=== PATIENT | male | born 1935 | race Caucasian/White ===

== ENCOUNTER 2016-12-06 13:15 | Inpatient (IN) ==
[2016-12-06] MEDS ORDERED: methylPREDNISolone 125 MG/2 ML VIAL IVP ONE ×2 (13:19→13:20)
[2016-12-06] MEDS ORDERED: Ipratropium/Albuterol Neb 3 ML IH ONE (13:20)
[2016-12-06] MEDS ORDERED: Levofloxacin 750 MG/150 ML 750 MG/150 ML BAG IVPB ONE (13:21)
[2016-12-06 13:40] LABS: Basophils % 0.3 %; Eosinophils # 0.1 K/mcL (0.0-0.6); Eosinophils % 0.8 %; Hematocrit 35.2 % (37.5-50.1); Hemoglobin 11.3 g/dL (12.9-16.9); Immature Granulocytes % 0.1 % (0-4); Lymphocytes # 1.2 K/mcL (0.6-4.6); Lymphocytes % 15.9 %; Mean Corpuscular HGB Conc 32.1 g/dL (31.6-35.5); Mean Corpuscular Hemoglobin 31.4 pg (28.0-33.3); Mean Corpuscular Volume 97.8 fL (83.0-100.0); Mean Platelet Volume 9.5 fL (9.4-12.4); Monocytes # 0.4 K/mcL (0.0-1.3); Monocytes % 5.5 %; Neutrophils # 5.9 K/mcL (1.6-8.9); Platelet Count 278 K/mcL (140-400); Red Cell Distribution Width 11.8 % (11.5-14.5); Segmented Neutrophils % 77.4 %
[2016-12-06 13:46] LABS: Prothrombin Time 11.1 Seconds (9.4-12.1)
[2016-12-06 13:48] LABS: Activated Partial Thrombo Time 36.5 Seconds (26.0-36.0)
[2016-12-06 13:52] LABS: BUN/Creatinine Ratio 18 (6-26); Blood Urea Nitrogen 18 mg/dL (8-26); Calcium 10.6 mg/dL (8.6-10.8); Carbon Dioxide 37 mEq/L (19-29); Chloride 94 mEq/L (98-109); Glucose 92 mg/dL (70-99); Osmolality,Calculated 294 (280-300); Potassium 4.2 mEq/L (3.5-4.5); Sodium 141 mEq/L (136-145); eGFR For African Americans > 60 (> 60); eGFR For Non-African Americans > 60 (> 60)
--- NOTE | 2016-12-06 14:21 | Emergency Department Note ---
Disposition Clinical Impression: Acute exacerbation of chronic obstructive airways disease Chronic respiratory failure Qualifiers: Respiratory failure complication: hypoxia Qualified Code(s): J96.11 - Chronic respiratory failure with hypoxia Dyspnea Qualifiers: Dyspnea type: dyspnea on exertion Qualified Code(s): R06.09 - Other forms of dyspnea Disposition: Admitted As Inpatient Condition: Good Time of Disposition: 14:40 SOB HPI - General Chief Complaint: ED Shortness of Breath/Dyspnea Stated Complaint: LIDIA x3days Time Seen by Provider: 12/06/16 13:19 Source: patient, EMS Mode of arrival: EMS Limitations: no limitations Nursing Notes Reviewed: Yes Vital Signs Reviewed: Yes - History of Present Illness Patient presents by EMS for evaluation shortness of breath and productive cough at home. He has long-standing COPD and emphysema. He typically uses 4 L oxygen at home. He is felt the symptoms coming on for approximately 3 days. He denies chest pain headache vision changes nausea vomiting diarrhea. Denies fevers or chills. Pt Subjective Complaint: shortness of breath, cough Onset (ago): day(s) (3 days) Context: recent illness, smoke/fume exposure Severity: moderate Consistency/Duration: constant Improves with: oxygen, rest, bronchodilators, upright position Worsens with: lying flat, exertion, movement, coughing Known history of: COPD Associated symptoms: Reports: cough, sputum production Treatment prior to arrival: oxygen, bronchodilator Cough present: Yes Cough Description: Involuntary Cough Frequency: Intermittent Sputum production: Yes Sputum Amount: Moderate Sputum Color: White - Related Data Home oxygen amount: 4 liters Home Medications Medication Instructions Recorded Confirmed Albuterol Neb [Proventil Neb] 2.5 mg IH PRN PRN 06/16/15 09/02/15 Albuterol Sulfate [Albuterol 2 puff IH PRN PRN 06/16/15 09/02/15 Inhaler] Chlordiazepoxide [Librium] 5 mg PO BID 06/16/15 09/02/15 Cholecalciferol (Vitamin D3) 10,000 unit PO QAM 09/02/15 09/02/15 [Vitamin D3] Previous Rx's Medication Instructions Recorded Nicotine Patch [Nicoderm] 21 mg TD DAILY #30 patch.td24 08/28/15 Budesonide/Formoterol 160/4.5 2 puff IH BIDR #5 inhaler 10/23/15 [Symbicort] Morphine Oral CONC [Roxanol] 5 mg SL Q2H PRN #2 oral.syg 09/06/15 Nicotine Patch [Nicoderm] 21 mg TD DAILY #20 patch.td24 09/06/15 Sennosides [Senna] 17.2 mg PO BID #30 tablet 09/06/15 Amlodipine [Norvasc] 10 mg PO DAILY #30 tablet 08/11/16 Levofloxacin 500 mg PO DAILY #3 tablet 08/11/16 Omeprazole [PriLOSEC] 20 mg PO DAILY@0630 #30 capsule. 08/11/16 PredniSONE 60 mg PO DAILY 9 Days 08/11/16 Allergies Allergy/AdvReac Type Severity Reaction Status Date / Time No Known Allergies Allergy Verified 08/27/15 11:44 All systems ED: reviewed and negative except as stated. Constitutional: Denies: fever, chills Cardiovascular: Reports: dyspnea on exertion, orthopnea. Denies: chest pain, palpitations Respiratory: Denies: cough Gastrointestinal: Denies: abdominal pain, nausea Genitourinary: Denies: dysuria, frequency Musculoskeletal: Denies: back pain, neck pain, joint swelling Integumentary: Denies: rash, abrasion, lesions Neurological: Denies: headache Endocrine: Denies: fatigue Past Medical History - Past Medical History Attestation: Yes The following information was validated with the patient. Source: patient Medical history: Reports: COPD, hypertension, other Surgical history: Reports: no surgical history Psychiatric history: Reports: no psych history - Social History Smoking Status: Current every day smoker Smokeless Tobacco Status: No Alcohol use: Reports: none Drug use: Reports: none Physical Exam - General Limitations: no limitations General appearance: alert, in no apparent distress - Head Head exam: atraumatic, normocephalic, normal inspection - Neck Neck exam: Present: normal inspection, full ROM, trachea midline. Absent: tenderness - Chest Chest inspection: Present: normal inspection, symmetric chest wall rise. Absent : tenderness - Respiratory Respiratory exam: Present: respiratory distress, wheezes, accessory muscle use, prolonged expiratory phase - Cardiovascular Cardiovascular exam: Present: regular rate, normal rhythm, normal heart sounds - Extremities Exam Extremities exam: Present: normal inspection, full ROM, normal capillary refill. Absent: tenderness, pedal edema - Back Exam Back exam: Present: normal inspection, full ROM. Absent: tenderness - Neurological Exam Neurological exam: Present: alert, oriented X3, CN II-XII intact, normal gait - Psychiatric Psychiatric exam: Present: normal affect, normal mood - Skin Skin exam: Present: warm, dry, intact, normal color Course Course Narrative: Patient seen and examined the time of arrival by EMS. See history of present illness. This is an 81-year-old male who presents with known COPD and emphysema. He has had exacerbation of his symptoms over the last 3 days. He typically is on 4 L of oxygen at home he has productive white sputum. He is currently smoking. He denies chest pain fevers chills nausea vomiting and diarrhea. Denies any changes in medication or travel outside the country. He says that this is identical to his previous COPD exacerbations. Physical exam shows diffuse bilateral wheezing with intermittent crackles. Patient is visibly tachypnea with increased work of breathing he is thin and frail on presentation. He is well-known to the emergency room and I have seen him myself several times. She will have COPD treatment started at this time the steroids and breathing treatments. He does not require BiPAP at this point he is speaking in full sentences on the ED and answering questions appropriately. Labs EKG and chest x-ray ordered at this time. Prophylactic dose of IV Levaquin ordered considering his sputum production and presentation. Disposition will most likely be admission to the hospital once her workup is completed. EKG and chest x-ray pending - Reevaluation(s) Reevaluation #1: Patient was discussed with the hospitalist Dr. carvajal. Detailed review the patient's presentation symptoms and medical history were reviewed. He had no other recommendations at this time. Patient will be admitted to the hospital for what appears to be a COPD exacerbation with failed outpatient treatment. Time: 14:39 Vital Signs Temperature 98.5 F 12/06/16 13:16 Pulse Rate 95 12/06/16 13:16 Respiratory Rate 22 12/06/16 13:16 Blood Pressure 166/87 12/06/16 13:16 O2 Sat by Pulse Oximetry 91 L 12/06/16 13:16 Temperature 98.5 F 12/06/16 13:16 Pulse Rate 98 12/06/16 14:07 Respiratory Rate 18 12/06/16 14:35 Blood Pressure 144/87 12/06/16 14:35 O2 Sat by Pulse Oximetry 97 12/06/16 14:07 Oxygen Delivery Oxygen Delivery Nasal Cannula Shortness of Breath/Dyspnea - MDM Narrative Medical decision making narrative: COPD exacerbation, hypoxia, tachypnea - Medical Records Medical records reviewed: Yes I reviewed the patient's medical records. - Lab Data Lab results reviewed: Yes I reviewed the patient's lab results. Result diagrams: 12/06/16 13:30 12/06/16 13:30 Lab Results 12/06/16 12/06/16 12/06/16 Range/Units 13:30 13:30 13:30 WBC 7.6 (4.3-11.1) K/mcL RBC 3.60 L (4.19-5.50) M/mcL Hgb 11.3 L (12.9-16.9) g/dL Hct 35.2 L (37.5-50.1) % MCV 97.8 (83.0-100.0) fL MCH 31.4 (28.0-33.3) pg MCHC 32.1 (31.6-35.5) g/dL RDW 11.8 (11.5-14.5) % Plt Count 278 (140-400) K/mcL MPV 9.5 (9.4-12.4) fL Immature Gran % 0.1 (0-4) % Seg Neutrophils % 77.4 % Lymphocytes % 15.9 % Monocytes % 5.5 % Eosinophils % 0.8 % Basophils % 0.3 % Neutrophils # 5.9 (1.6-8.9) K/mcL Lymphocytes # 1.2 (0.6-4.6) K/mcL Monocytes # 0.4 (0.0-1.3) K/mcL Eosinophils # 0.1 (0.0-0.6) K/mcL Basophils # 0.0 (0.0-0.2) K/mcL PT 11.1 (9.4-12.1) Seconds INR 1.0 APTT 36.5 H (26.0-36.0) Seconds Sodium 141 (136-145) mEq/L Potassium 4.2 (3.5-4.5) mEq/L Chloride 94 L (98-109) mEq/L Carbon Dioxide 37 H (19-29) mEq/L BUN 18 (8-26) mg/dL Creatinine 1.02 (0.72-1.25) mg/dL Est GFR ( Amer) > 60 (> 60) Est GFR (Non-Af Amer) > 60 (> 60) BUN/Creatinine Ratio 18 (6-26) Glucose 92 (70-99) mg/dL Calculated Osmolality 294 (280-300) Calcium 10.6 (8.6-10.8) mg/dL Troponin I (0-0.03) ng/mL B-Natriuretic Peptide (0-100) pg/mL 12/06/16 12/06/16 Range/Units 13:30 13:30 WBC (4.3-11.1) K/mcL RBC (4.19-5.50) M/mcL Hgb (12.9-16.9) g/dL Hct (37.5-50.1) % MCV (83.0-100.0) fL MCH (28.0-33.3) pg MCHC (31.6-35.5) g/dL RDW (11.5-14.5) % Plt Count (140-400) K/mcL MPV (9.4-12.4) fL Immature Gran % (0-4) % Seg Neutrophils % % Lymphocytes % % Monocytes % % Eosinophils % % Basophils % % Neutrophils # (1.6-8.9) K/mcL Lymphocytes # (0.6-4.6) K/mcL Monocytes # (0.0-1.3) K/mcL Eosinophils # (0.0-0.6) K/mcL Basophils # (0.0-0.2) K/mcL PT (9.4-12.1) Seconds INR APTT (26.0-36.0) Seconds Sodium (136-145) mEq/L Potassium (3.5-4.5) mEq/L Chloride (98-109) mEq/L Carbon Dioxide (19-29) mEq/L BUN (8-26) mg/dL Creatinine (0.72-1.25) mg/dL Est GFR ( Amer) (> 60) Est GFR (Non-Af Amer) (> 60) BUN/Creatinine Ratio (6-26) Glucose (70-99) mg/dL Calculated Osmolality (280-300) Calcium (8.6-10.8) mg/dL Troponin I 0.02 (0-0.03) ng/mL B-Natriuretic Peptide 100 (0-100) pg/mL - Radiology Data Radiology results reviewed: Yes I reviewed the patient's radiology results. Chest x-ray shows hyperinflation but no signs of infiltrate. Reviewed by myself and confirmed by radiology - EKG Data EKG attestation: Yes I reviewed and interpreted this EKG. EKG shows normal: Reports: sinus rhythm, axis, intervals, QRS complexes, ST-T waves Rate: Reports: normal Rhythm: Reports: NSR [place]/QRS: Reports: normal When compared to previous EKG there are: no significant changes Interpretation: Reports: no acute changes, unchanged when compared to prior tracing (date) Critical Care Time Critical Care Time: Yes Total Critical Care Time: 45 Attestation: Independent of procedures and medical intervention Attestation Statement - Attestation Attestation: Patient was seen with resident physician. I reviewed the history, physical, assessment and plan, and agree with the findings. I also personally evaluated this patient and had [id number] time with this patient. 81-year-old male with chronic COPD presents to the emergency department with acute worsening in shortness of breath. Concerned that he might have pneumonia or another problem. He is on home O2 but this is not helping, nor are his breathing treatments. Denies chest pain or other complaints. On examination heart is regular rhythm and rate. Lungs show diffuse wheezing throughout with increased work of breathing and barrel chest. Abdomen is soft and nontender he said mild abdominal wall herniations which are easily reducible. Extremities are unremarkable. Patient was given 3 breathing treatments but unfortunately did not resolve him of symptoms sufficiently to go home. X-ray showed no acute pneumonia. We will bring into the emergency department for respiratory therapy option therapy and further evaluation and management. Hospitalist notified hemodynamically stable at the time of admission. I agree with the resident physician assessment and plan.
[2016-12-06] MEDS ORDERED: Acetaminophen 325 MG TABLET PO PRN (15:08)
[2016-12-06] MEDS ORDERED: Naloxone 0.4 MG/ML INJ IVP PRN (15:08)
[2016-12-06] MEDS ORDERED: Ondansetron 4 MG/2 ML VIAL IVP PRN (15:08)
--- NOTE | 2016-12-06 15:14 | Internal Med History&Physical ---
Date of Encounter: 12/06/16 Time of Encounter: 14:35 Internal Medicine - H&P: HPI Chief complaint: Coughing, SOB X 2-3 days Admitted From: Emergency Dept Plans for Post Hospital Care: Home History of present illness: Mr. Becker is a 81 year old male male with medical history significant for advanced COPD, oxygen -dependent on home oxygen 4L/min, was brought in by EMS for evaluation of progressive SOB over the past 2-3 days and a productive cough. SOB occurring at rest that he is barely able to move. Cough is productive of clear mucous no associated chest pain. No fever, chills or rigors. He reports swelling in her left sub-mandibular area, he had discussedwith his PCP,WHOM HE REPORTS DID NOT arlene a particular action on it. No sick contacts, no recent travel. He did not receive influenza vaccination for the season. He reports he is up-to-date with pneumococcal vaccination. He has 4- 5 exacerbations yearly. He reports compliance with medications. He continues to smoke about 25 cigarettes daily. He has no plans to quit smoking. No othr systemic symptoms, no constiutional signs. Patient presents by EMS for evaluation shortness of breath and productive cough at home. He has long- standing COPD and emphysema. He typically uses 4 L oxygen at home. He is felt the symptoms coming on for approximately 3 days. He is FULL CODE as per discussion. However he does not want to be maintained, under any circumstance in a prolonged vegetative state. He nominates his , Josephine Becker, as his NOK/POA. Source: patient and daughter Medical history: Reports: COPD, hypertension, other Surgical history: Reports: no surgical history Psychiatric history: Reports: no psych history Smoking Status: Current every day smoker Smokeless Tobacco Status: No Alcohol use: Reports: none Drug use: Reports: none Family history: mother/father: cancer, uncertain of primary, brother: DM2 Vital Signs Temperature 98.5 F 12/06/16 13:16 Pulse Rate 95 12/06/16 13:16 Respiratory Rate 22 12/06/16 13:16 Blood Pressure 166/87 12/06/16 13:16 O2 Sat by Pulse Oximetry 91 L 12/06/16 13:16 Temperature 98.5 F 12/06/16 13:16 Pulse Rate 98 12/06/16 14:07 Respiratory Rate 18 12/06/16 14:35 Blood Pressure 144/87 12/06/16 14:35 O2 Sat by Pulse Oximetry 97 12/06/16 14:07 O/E: In distress, tachypneic, unable to speak in complete sentences, no pursing of lips. Emaciated, low skin fold thickness, with scanty subcutaneous fat. HEENT: Not pale, anicteric, afebrile, acyanotic, Chest: expiratory wheezing, prolonged expiratory phase. Heart: RRR, HS1/2, no murmur Abdomen: soft, non-tender, no masses. : No flank tenderness, no CVA tenderness, no suprapubic tenderness. SUPERVISOR FACEPIECE LINE: AAO x 3, no gross focal neurological deficits Skin: No active skin lesion Extremities: No pedal edema, normal pedal pulses, no calf tenderness. Lab Results 12/06/16 12/06/16 12/06/16 Range/Units 13:30 13:30 13:30 WBC 7.6 (4.3-11.1) K/mcL RBC 3.60 L (4.19-5.50) M/mcL Hgb 11.3 L (12.9-16.9) g/dL Hct 35.2 L (37.5-50.1) % MCV 97.8 (83.0-100.0) fL MCH 31.4 (28.0-33.3) pg MCHC 32.1 (31.6-35.5) g/dL RDW 11.8 (11.5-14.5) % Plt Count 278 (140-400) K/mcL MPV 9.5 (9.4-12.4) fL Immature Gran % 0.1 (0-4) % Seg Neutrophils % 77.4 % Lymphocytes % 15.9 % Monocytes % 5.5 % Eosinophils % 0.8 % Basophils % 0.3 % Neutrophils # 5.9 (1.6-8.9) K/mcL Lymphocytes # 1.2 (0.6-4.6) K/mcL Monocytes # 0.4 (0.0-1.3) K/mcL Eosinophils # 0.1 (0.0-0.6) K/mcL Basophils # 0.0 (0.0-0.2) K/mcL PT 11.1 (9.4-12.1) Seconds INR 1.0 APTT 36.5 H (26.0-36.0) Seconds Sodium 141 (136-145) mEq/L Potassium 4.2 (3.5-4.5) mEq/L Chloride 94 L (98-109) mEq/L Carbon Dioxide 37 H (19-29) mEq/L BUN 18 (8-26) mg/dL Creatinine 1.02 (0.72-1.25) mg/dL Est GFR ( Amer) > 60 (> 60) Est GFR (Non-Af Amer) > 60 (> 60) BUN/Creatinine Ratio 18 (6-26) Glucose 92 (70-99) mg/dL Calculated Osmolality 294 (280-300) Calcium 10.6 (8.6-10.8) mg/dL Troponin I (0-0.03) ng/mL B-Natriuretic Peptide (0-100) pg/mL 12/06/16 12/06/16 Range/Units 13:30 13:30 WBC (4.3-11.1) K/mcL RBC (4.19-5.50) M/mcL Hgb (12.9-16.9) g/dL Hct (37.5-50.1) % MCV (83.0-100.0) fL MCH (28.0-33.3) pg MCHC (31.6-35.5) g/dL RDW (11.5-14.5) % Plt Count (140-400) K/mcL MPV (9.4-12.4) fL Immature Gran % (0-4) % Seg Neutrophils % % Lymphocytes % % Monocytes % % Eosinophils % % Basophils % % Neutrophils # (1.6-8.9) K/mcL Lymphocytes # (0.6-4.6) K/mcL Monocytes # (0.0-1.3) K/mcL Eosinophils # (0.0-0.6) K/mcL Basophils # (0.0-0.2) K/mcL PT (9.4-12.1) Seconds INR APTT (26.0-36.0) Seconds Sodium (136-145) mEq/L Potassium (3.5-4.5) mEq/L Chloride (98-109) mEq/L Carbon Dioxide (19-29) mEq/L BUN (8-26) mg/dL Creatinine (0.72-1.25) mg/dL Est GFR ( Amer) (> 60) Est GFR (Non-Af Amer) (> 60) BUN/Creatinine Ratio (6-26) Glucose (70-99) mg/dL Calculated Osmolality (280-300) Calcium (8.6-10.8) mg/dL Troponin I 0.02 (0-0.03) ng/mL B-Natriuretic Peptide 100 (0-100) pg/mL CXR: hyperinflated lungs, no infiltrates EKG: NSR, LAE, LAFB, IVDC low voltage due to hyperinflated lungs, no acute changes, unchanged when compared to prior tracing IMP Acute bronchitis Acute on chronic respiratory failure, evident use tachypnea and use of accessory muscle of respiration COPD exacerbation Dysuria, evaluate for UTI Left submandibular focal adenopathy: lymph node vs submandibular gland. Chronic morbidities Advanced COPD Muscle wasting, malnutrition related to advance COPD. HTN History of colitis History of prostate cancer s/pprsotatic seeding. Plan Admit Oxygen supplementation Duonebs QIDR, albuterol nebs Q2H PRN Solumedrol 40mg Q12H Symbicort 2puffs BID Levaquin 500mg po QD Symptom control Famotidine 40mg po QD CT chest adn soft tissue of neck with IV contrast. Lovenox 40mg SC QD for DVT prophylaxis Continue other medications of chronic morbidities. I discussed my assessment with the patient, family was at bedside, they verbalized understanding and are agreeable to admission. The patient is high risk. He has increased work of breath, may easily deteriorate to require pressure support. I Past Med Surg Social Fam HX - Past Medical History Medical history: COPD, hypertension, other Psychiatric history: no psych history - Past Surgical History Surgical History: no surgical history - Social History Smoking Status: Current every day smoker Smokeless Tobacco Status: No Alcohol use: none Drug use: none - Family History Brother Living Status: Still Living Hx Family Endocrine Disorder: Yes (Diabetes) Internal Medicine - H&P: Meds Albuterol Neb [Proventil Neb] 2.5 mg IH PRN PRN 06/16/15 [History] Albuterol Sulfate [Albuterol Inhaler] 2 puff IH PRN PRN 06/16/15 [History] Chlordiazepoxide [Librium] 10 mg PO BID 06/16/15 [History] Cholecalciferol (Vitamin D3) [Vitamin D3] 10,000 unit PO QAM 09/02/15 [History] Budesonide/Formoterol 160/4.5 [Symbicort] 2 puff IH BIDR #5 inhaler 09/06/15 [Rx ] Ascorbate Calcium [Vitamin C] 500 mg PO DAILY 12/06/16 [History] Cranberry 500 mg PO DAILY 12/06/16 [History] Diphenoxylate/Atropine [Lomotil 2.5 mg/0.025 mg] 1 tab PO BID 12/06/16 [History] Multivitamin [Multi-Day Vitamins] 1 tab PO DAILY 12/06/16 [History] Allergies No Known Allergies Allergy (Verified 08/27/15 11:44) All Systems PM: A 10-system review of systems was performed and is negative for pertinent findings except as documented above in the HPI. - Constitutional Vitals: Temp Pulse Resp BP Pulse Ox 98.5 F 98 18 144/87 97 12/06/16 13:16 12/06/16 14:07 12/06/16 14:35 12/06/16 14:35 12/06/16 14:07 Internal Med - H&P Results - Labs CBC & Chem 7: 12/06/16 13:30 12/06/16 13:30
[2016-12-06] MEDS: Ipratropium/Albuterol Neb 3 ML IH SCH ×2 (16:34→22:13)
[2016-12-06] MEDS: MethylPREDNISolone 40 MG/ML VIAL IVP SCH (17:51)
[2016-12-06 19:30] LABS: Bilirubin,Urine Negative (Negative); Blood,Urine Negative (Negative); Clarity,Urine Clear (Clear); Color,Urine Yellow (Yellow); Glucose,Urine (UA) Normal (Normal); Ketones,Urine Negative (Negative); Leukocyte Esterase,Urine Negative (Negative); Nitrite,Urine Negative (Negative); PH,Urine 7.5 pH Units (5.0-8.0); Protein,Urine Trace mg/dL (Neg-Trace); Specific Gravity,Urine 1.023 (1.010-1.025); Urobilinogen,Urine Normal (Normal)
[2016-12-06 19:32] LABS: Bacteria,Urine None Seen per hpf (None-Few); Hyaline Casts,Urine None Seen per lpf (None-Few); RBC,Urine 0-3 per hpf (0-3); Squamous Epithelial Cell,Urine Moderate per lpf (None-Few)
[2016-12-06] MEDS: Albuterol 2.5 MG/3 ML NEBULIZER IH PRN (19:53)
[2016-12-06] MEDS: Diphenoxylate/Atropine 1 TAB TABLET PO SCH (21:17)
[2016-12-06] MEDS: Budesonide/Formoterol 160/4.5 MDI IH SCH (22:13)
[2016-12-07] MEDS: Nicotine 21 MG PATCH.TD24 TD SCH (02:15)
[2016-12-07] MEDS: Ipratropium/Albuterol Neb 3 ML IH SCH ×5 (04:58→23:49)
[2016-12-07] MEDS: MethylPREDNISolone 40 MG/ML VIAL IVP SCH ×3 (06:07→23:27)
[2016-12-07] MEDS: *HR* Enoxaparin 40 MG/0.4 ML SYRINGE SQ SCH (06:07)
[2016-12-07] MEDS: levoFLOXacin 500 MG TABLET PO SCH (08:55)
[2016-12-07] MEDS: Multivit/Ca/Min/Fe/FA 1 TAB TABLET PO SCH (08:55)
[2016-12-07] MEDS: Ascorbic Acid 500 MG TABLET PO SCH (08:55)
[2016-12-07] MEDS: Cholecalciferol (D-3) 1,000 UNIT TABLET PO SCH (08:56)
[2016-12-07] MEDS: Diphenoxylate/Atropine 1 TAB TABLET PO SCH (08:56)
[2016-12-07] MEDS: Cranberry [Cranberry] 500 MG PO SCH (08:56)
[2016-12-07] MEDS ORDERED: Famotidine 20 MG TABLET PO SCH (09:00)
[2016-12-07] MEDS ORDERED: Nicotine 21 MG PATCH.TD24 TD SCH (09:00)
[2016-12-07] MEDS: Budesonide/Formoterol 160/4.5 MDI IH SCH ×2 (10:45→20:25)
--- NOTE | 2016-12-07 12:47 | Internal Med Progress Note ---
Date of Encounter: 12/07/16 Time of Encounter: 09:30 - Assessment and plan (1) Acute exacerbation of chronic obstructive airways disease Current Visit: Yes Status: Acute Assessment and plan: Patient stating he feels slightly better but is not back to his baseline. On examination, aeration fair to poor. Continue pulmonary toilet. Chest x-ray consistent with hyperinflation, chest CT consistent with severe COPD and possibly interstitial pneumonitis, we will continue to trend. Continue levofloxacin. Neck CT unremarkable. ITS Impressions Chest X-Ray 12/06/16 13:19 IMPRESSION: Hyperinflation. D/ / Tasia Lovell MD / Tasia Lovell MD Interpreting Provider: Tasia Lovell MD Chest CT 12/06/16 15:58 IMPRESSION: 1. No acute process in the chest. 2. Mildly enlarged nonspecific distal anterior peritracheal lymph node mildly increased from 09/04/2015. 3. Severe COPD. 4. Possible early honeycombing and interstitial markings at the bilateral lung bases raising the possibility of usual interstitial pneumonitis. 5. Calcified pleural plaque at the left lung base. The differential includes remote empyema versus hemothorax versus asbestos related pleural disease. 6. Small volume of anterior pericardial fluid. D/ / Rolando Abraham MD / Rolando Abraham MD Interpreting Provider: Rolando Abraham MD Soft Tissue Neck CT 12/06/16 15:58 IMPRESSION: 1. There is no evidence of a left submandibular mass to correspond with the area of palpable clinical concern. No appreciable soft tissue swelling is noted along the left side of the face. 2. No cervical lymphadenopathy. 3. Severe emphysema. D/ / 12/06/2016 17:24:30 Thien Londono MD / car[place] Interpreting Provider: Thien Londono MD (2) Acute and chronic respiratory failure with hypoxia Current Visit: No Status: Acute Assessment and plan: Acute on chronic. Patient is on 4 L per nasal cannula continuously at home, currently on 4 L here as well. (3) Generalized weakness Current Visit: Yes Status: Acute Assessment and plan: OT and PT consultations are pending. Patient stating he does not feel as if he could ambulate to the bathroom at this time, will order bedside commode. (4) DVT prophylaxis Current Visit: No Status: Acute Assessment and plan: Subcutaneous Lovenox (5) Dysuria Current Visit: No Status: Ruled-out Assessment and plan: Urinalysis negative. UTI ruled out. (6) Full code status Current Visit: No Status: Acute (7) History of pancreatic cancer Current Visit: No Status: Chronic (8) Hypertension Current Visit: No Status: Chronic Assessment and plan: Controlled, will continue to trend and adjust medications as indicated. Qualifiers: Hypertension type: essential hypertension Qualified Code(s): I10 - Essential (primary) hypertension (9) Tobacco abuse Current Visit: No Status: Chronic Assessment and plan: Declines smoking cessation counseling, nicotine patch (10) Anemia Current Visit: Yes Status: Chronic Assessment and plan: Stable since 2014, no signs of active bleeding. Mild. - Subjective Interval history: Patient seen and examined. On examination, patient resting supine in bed conversing with his and watching television. Patient stating he still feels quite a bit more short of breath than usual and he continues to endorse weakness. He is concerned that if he has to go to the bathroom, he feels he is too weak to ambulate at this time. - Constitutional Vitals: Temp Pulse Resp BP Pulse Ox 98 F 104 16 117/66 88 L 12/07/16 11:29 12/07/16 11:29 12/07/16 11:29 12/07/16 11:29 12/07/16 11:29 General appearance: Present: cachectic, mild distress, A&O X 3, pleasant, answers questions appropriately - Head Head exam: Present: atraumatic, normocephalic - Eye Eye exam: Present: PERRL, conjuntiva pink, sclera anicteric Pupils: Present: PERRL - Neck Neck exam general surgery: Present: supple, trachea midline. Absent: lymphadenopathy - Respiratory Respiratory exam: Present: accessory muscle use, decreased breath sounds, prolonged expiratory phase, respiratory distress, wheezes. Absent: rales, rhonchi - Cardiovascular Cardiovascular exam: Present: RRR, +S1, +S2. Absent: diastolic murmur, gallop, rubs, systolic murmur - GI/Abdominal GI/Abdominal exam: Present: normal bowel sounds, soft, no peritoneal signs. Absent: distended, tenderness - Extremities Exam Extremities exam: Present: warm, radial pulses palpable and symetrical. Absent : calf tenderness, cyanotic, pedal edema - Neurological Exam Neurological exam: Present: alert, CN II-XII intact, oriented X3, no focal deficits, strengths equal and symetr throughout. Absent: pronater drift, facial droop, speech deficit - Skin Skin exam: Present: dry, intact, pallor, warm Internal Medicine: Result - Labs CBC & Chem 7: 12/06/16 13:30 12/06/16 13:30 Labs: Urine 12/06/16 Range/Units 19:18 Urine Color Yellow (Yellow) Urine Clarity Clear (Clear) Urine pH 7.5 (5.0-8.0) pH Units Ur Specific [place] 1.023 (1.010-1.025) Urine Protein Trace (Neg-Trace) mg/dL Urine Glucose (UA) Normal (Normal) mg/dL - ABG Interpretation ABG results: PT/INR, D-dimer PT 11.1 Seconds (9.4-12.1) 12/06/16 13:30 Consult Discharge Plan - Plan Referrals: Radha Hicks CNP [Primary Care Provider] - 12/14/16 9:45 am
[2016-12-07] MEDS ORDERED: Diphenoxylate/Atropine 1 TAB TABLET PO PRN (12:53)
--- NOTE | 2016-12-07 17:34 | Electrocardiograph Report ---
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
[2016-12-07] MEDS: Albuterol 2.5 MG/3 ML NEBULIZER IH PRN (21:37)
[2016-12-07] MEDS ORDERED: Benzonatate 100 MG CAPSULE PO PRN (21:44)
[2016-12-08] MEDS: Ipratropium/Albuterol Neb 3 ML IH SCH ×3 (04:31→11:21)
[2016-12-08] MEDS: *HR* Enoxaparin 40 MG/0.4 ML SYRINGE SQ SCH (06:03)
[2016-12-08] MEDS: Budesonide/Formoterol 160/4.5 MDI IH SCH (08:19)
[2016-12-08] MEDS ORDERED: Famotidine 20 MG TABLET PO SCH (09:00)
[2016-12-08] MEDS: levoFLOXacin 500 MG TABLET PO SCH (09:46)
[2016-12-08] MEDS: MethylPREDNISolone 40 MG/ML VIAL IVP SCH (09:46)
[2016-12-08] MEDS: Cholecalciferol (D-3) 1,000 UNIT TABLET PO SCH (09:46)
[2016-12-08] MEDS: Ascorbic Acid 500 MG TABLET PO SCH (09:47)
[2016-12-08] MEDS: Nicotine 21 MG PATCH.TD24 TD SCH (09:47)
[2016-12-08] MEDS: Multivit/Ca/Min/Fe/FA 1 TAB TABLET PO SCH (09:47)
[2016-12-08 10:44] VITALS: BP 142/80
[2016-12-08] MEDS: Cranberry [Cranberry] 500 MG PO SCH (13:40)
--- NOTE | 2016-12-08 14:20 | Discharge Summary ---
Date of Encounter: 12/08/16 Time of Encounter: 13:30 - Discharge Diagnosis (1) Acute exacerbation of chronic obstructive airways disease Priority: Primary Status: Resolved Comments: Patient denies shortness of breath above his normal day of discharge. He continued to require the same amount of oxygen at home which is 4 L per nasal cannula continuously. He declined home health services. Prescription written for walker and bedside commode. (2) Acute and chronic respiratory failure with hypoxia Priority: Primary Status: Acute (3) Generalized weakness Priority: Primary Status: Acute Comments: Patient declined home health services stating that he would rather go home and then decide at a later time if he felt home health services would be beneficial. (4) DVT prophylaxis Priority: Primary Status: Acute Comments: Subcutaneous Lovenox while admitted. (5) Dysuria Priority: Primary Status: Ruled-out Comments: Urinalysis negative, UTI ruled out. (6) Full code status Priority: Primary Status: Acute (7) History of pancreatic cancer Priority: Secondary Status: Chronic (8) Hypertension Priority: Secondary Status: Chronic Comments: Controlled, recommend continued follow-up outpatient. Qualifiers: Hypertension type: essential hypertension Qualified Code(s): I10 - Essential (primary) hypertension (9) Tobacco abuse Priority: Secondary Status: Chronic Comments: Declines smoking cessation counseling. (10) Anemia Priority: Secondary Status: Chronic Comments: Stable since 2015, no signs of active bleeding. Mild. Qualifiers: Anemia type: unspecified type Qualified Code(s): D64.9 - Anemia, unspecified (11) Protein-calorie malnutrition, moderate Priority: Primary Status: Acute Comments: Moderate non severe protein calorie malnutrition, poor po intakes prior to arrival with visible loss of fat stores and BMI 18.5. Sending home with Ensure drinks. - Discharge Medications Prescriptions: Benzonatate [Tessalon] 200 mg PO TID PRN #40 capsule PRN Reason: Cough Commode - Three In One [THREE IN ONE COMMODE] 1 each .ROUTE PRN #1 each Famotidine [Pepcid] 20 mg PO DAILY #30 tablet GuaiFENesin ER [Mucinex] 600 mg PO BID PRN #30 tbbp.12hr PRN Reason: Congestion Lactose-Reduced Food [Ensure Plus] 1 bottle PO TID #90 can Levofloxacin [Levaquin] 500 mg PO DAILY #5 tablet PredniSONE 10 mg PO DAILY #80 tablet Tiotropium [place] [Spiriva Respimat] 4 gm IH DAILY #1 mist.inhal Walker - Rollator [ROLLATOR] 1 each .ROUTE AD #1 each Home Medications: Albuterol Neb [Proventil Neb] 2.5 mg IH PRN PRN 06/16/15 [History] Albuterol Sulfate [Albuterol Inhaler] 2 puff IH PRN PRN 06/16/15 [History] Chlordiazepoxide [Librium] 10 mg PO BID 06/16/15 [History] Cholecalciferol (Vitamin D3) [Vitamin D3] 10,000 unit PO QAM 09/02/15 [History] Budesonide/Formoterol 160/4.5 [Symbicort] 2 puff IH BIDR #5 inhaler 09/06/15 [Rx ] Ascorbate Calcium [Vitamin C] 500 mg PO DAILY 12/06/16 [History] Cranberry 500 mg PO DAILY 12/06/16 [History] Diphenoxylate/Atropine [Lomotil 2.5 mg/0.025 mg] 1 tab PO BID 12/06/16 [History] Multivitamin [Multi-Day Vitamins] 1 tab PO DAILY 12/06/16 [History] Benzonatate [Tessalon] 200 mg PO TID PRN #40 capsule 12/08/16 [Rx] Commode - Three In One [THREE IN ONE COMMODE] 1 each .ROUTE PRN #1 each [Rx] Famotidine [Pepcid] 20 mg PO DAILY #30 tablet 12/08/16 [Rx] GuaiFENesin ER [Mucinex] 600 mg PO BID PRN #30 tbbp.12hr 12/08/16 [Rx] Lactose-Reduced Food [Ensure Plus] 1 bottle PO TID #90 can 12/08/16 [Rx] Levofloxacin [Levaquin] 500 mg PO DAILY #5 tablet 12/08/16 [Rx] PredniSONE 10 mg PO DAILY #80 tablet 12/08/16 [Rx] Tiotropium [place] [Spiriva Respimat] 4 gm IH DAILY #1 mist.inhal 12/08/16 [Rx] Walker - Rollator [ROLLATOR] 1 each .ROUTE AD #1 each 12/08/16 [Rx] Allergies/Adverse Reactions: Allergies No Known Allergies Allergy (Verified 08/27/15 11:44) Date of admission: 12/06/16 16:24 Primary care physician: Radha Hicks CNP Consults: 12/06/16 15:12 Consult to Occupational Therapy [CONS] Routine Comment: Evaluate, develop and implement POC Consult to Physical Therapy [CONS] Routine Comment: Evaluate, develop and implement POC Consult to Drywall Carrier [CONS] Routine Reason for SW Consult: COPD, discharge planning Discharging clinician: Jennifer Cornell Anticipated date of discharge: 12/08/16 (declined services) - Patient Status Disposition: Home, Self-Care Condition: Good Functional capacity at discharge: uses cane/walker Overall status at discharge: patient is back to baseline - Discharge Instructions Follow Up With: Radha Hicks CNP [Primary Care Provider] - 12/14/16 9:45 am Additional Instructions: Follow-up with primary care provider as scheduled - Diet and Activity Activity: ambulate only with your walker, increase activity as tolerated Diet: regular diet (with ensure supplements) Hospital course: Mr. Becker is a 81 year old male with past medical history of COPD on 4 L per nasal cannula continuously at home, hypertension, continued tobacco abuse. Patient presented to the emergency room chief complaint shortness of breath and productive cough 3 days. Workup in the emergency department unremarkable. Chest x-ray unremarkable for acute processes. Chest CT without acute processes and revealed severe COPD and possible early honeycombing. Patient was admitted to the hospitalist service for further evaluation and management of COPD exacerbation. Patient was admitted and observed over the course of 3 days and on day of discharge, he denied shortness of breath above his norm. He continued to require 4 L per nasal cannula continuously throughout this admission. He had generalized weakness and was seen and evaluated by occupational and physical therapy both of whom recommended home health services. Patient family declined home services at this time stating they would rather go home and then set up home health in the future if need be. Patient also reported swelling to his left submandibular area that he discussed with his primary care provider in the past. Soft tissue neck CT unremarkable for acute processes. Patient stating he continues to smoke approximately 25 cigarettes per day and states he has no plans to quit smoking. For further COPD treatment, Spiriva was added to his regimen upon disposition. He was also sent home with a lengthy prednisone taper, Mucinex, levofloxacin. He was also noted to be cachectic and was started on Ensure plus supplementations. He was also sent home with prescriptions for a bedside commode and a walker to use at home. He was discharged home in stable condition with close outpatient follow- up recommended. ITS Impressions Chest X-Ray 12/06/16 13:19 IMPRESSION: Hyperinflation. D/ / Tasia Lovell MD / Tasia Lovell MD Interpreting Provider: Tasia Lovell MD Chest CT 12/06/16 15:58 IMPRESSION: 1. No acute process in the chest. 2. Mildly enlarged nonspecific distal anterior peritracheal lymph node mildly increased from 09/04/2015. 3. Severe COPD. 4. Possible early honeycombing and interstitial markings at the bilateral lung bases raising the possibility of usual interstitial pneumonitis. 5. Calcified pleural plaque at the left lung base. The differential includes remote empyema versus hemothorax versus asbestos related pleural disease. 6. Small volume of anterior pericardial fluid. D/ / Rolando Abraham MD / Rolando Abraham MD Interpreting Provider: Rolando Abraham MD Soft Tissue Neck CT 12/06/16 15:58 IMPRESSION: 1. There is no evidence of a left submandibular mass to correspond with the area of palpable clinical concern. No appreciable soft tissue swelling is noted along the left side of the face. 2. No cervical lymphadenopathy. 3. Severe emphysema. D/ / 12/06/2016 17:24:30 Thien Londono MD / [facility] Interpreting Provider: Thien Londono MD - Time Spent with Patient Total time spent providing and/or coordinating discharge services: - Constitutional Vitals: Temp Pulse Resp BP Pulse Ox 98.3 F 99 14 142/80 94 L 12/08/16 10:43 12/08/16 10:43 12/08/16 11:22 12/08/16 10:43 12/08/16 11:22 General appearance: Present: cachectic, mild distress, A&O X 3, pleasant, answers questions appropriately - Head Head exam: Present: atraumatic, normocephalic - Eye Eye exam: Present: PERRL, conjuntiva pink, sclera anicteric Pupils: Present: PERRL - Neck Neck exam general surgery: Present: supple, trachea midline. Absent: lymphadenopathy - Respiratory Respiratory exam: Present: decreased breath sounds, prolonged expiratory phase, respiratory distress (mild; chronic), wheezes. Absent: accessory muscle use, rales, rhonchi - Cardiovascular Cardiovascular exam: Present: RRR, +S1, +S2. Absent: diastolic murmur, gallop, rubs, systolic murmur - GI/Abdominal GI/Abdominal exam: Present: normal bowel sounds, soft, no peritoneal signs. Absent: distended, tenderness - Extremities Exam Extremities exam: Present: warm, radial pulses palpable and symetrical. Absent : calf tenderness, cyanotic, pedal edema - Neurological Exam Neurological exam: Present: alert, CN II-XII intact, oriented X3, no focal deficits, strengths equal and symetr throughout. Absent: pronater drift, facial droop, speech deficit - Skin Skin exam: Present: dry, intact, normal color, warm
== END 2016-12-08 16:18 | disposition home or self-care (01) | DRG 190 ==
LOC: 3BNU 13:15 → EMEROO 13:15 → 3BNU 15:08
PROVIDERS: ADMIT Nurse Practitioner Family; ATTEND Nurse Practitioner Family

== ENCOUNTER 2016-12-26 12:56 | Inpatient (IN) ==
[2016-12-26] MEDS ORDERED: Ipratropium/Albuterol Neb 3 ML IH ONE (12:58)
--- NOTE | 2016-12-26 13:07 | Emergency Department Note ---
Disposition Clinical Impression: Acute exacerbation of chronic obstructive pulmonary disease Disposition: Admitted As Inpatient Condition: Good SOB HPI - General Chief Complaint: ED Shortness of Breath/Dyspnea Stated Complaint: lidia Time Seen by Provider: 12/26/16 12:58 Source: patient, EMS Limitations: age Nursing Notes Reviewed: Yes Vital Signs Reviewed: Yes - History of Present Illness Mr. Becker, an 81yo male, presents from home by POV with bedside, CC: LIDIA. Onset late this morning. Hx COPD w/emphysema, on baseline 4L O2 continuous at home. On EMS arrival, patient was on 5L O2 with O2 sat 86% after a self-administered albuterol neb. En route, squad placed him on 4L with O2 sats in mid 90's. PMH: HTN, COPD, chronic malnutrition, hx prostate ca. Admits: LIDIA. Denies: fever, chills, cough of new character, chest pains, diaphoresis, abdominal pain, unusual weakness. - Related Data Home Medications Medication Instructions Recorded Confirmed Albuterol Neb [Proventil Neb] 2.5 mg IH PRN PRN 06/16/15 12/26/16 Albuterol Sulfate [Albuterol 2 puff IH PRN PRN 06/16/15 12/26/16 Inhaler] Chlordiazepoxide [Librium] 10 mg PO BID 06/16/15 12/26/16 Ascorbate Calcium [Vitamin C] 500 mg PO DAILY 12/06/16 12/26/16 Cranberry 500 mg PO DAILY 12/06/16 12/26/16 Diphenoxylate/Atropine [Lomotil 1 tab PO BID 12/06/16 12/26/16 2.5 mg/0.025 mg] Multivitamin [Multi-Day Vitamins] 1 tab PO DAILY 12/06/16 12/26/16 Budesonide/Formoterol 160/4.5 2 puff IH BID 12/26/16 12/26/16 [Symbicort] Cyanocobalamin (Vitamin B-12) 1,000 mcg PO DAILY 12/26/16 12/26/16 [Vitamin B12] Previous Rx's Medication Instructions Recorded GuaiFENesin ER [Mucinex] 600 mg PO BID PRN #30 tbbp.12hr 12/08/16 Lactose-Reduced Food [Ensure Plus] 1 bottle PO TID #90 can 12/08/16 PredniSONE 10 mg PO DAILY #80 tablet 12/08/16 Allergies Allergy/AdvReac Type Severity Reaction Status Date / Time No Known Allergies Allergy Verified 12/26/16 16:34 All systems ED: reviewed and negative except as stated. (as per HPI) Past Medical History - Past Medical History Medical history: Reports: COPD, hypertension, other Surgical history: Reports: no surgical history Psychiatric history: Reports: no psych history - Social History Smoking Status: Current every day smoker Smokeless Tobacco Status: No Alcohol use: Reports: none Drug use: Reports: none Physical Exam General: Patient is alert, oriented, and in no acute distress. He appears emanciated. HEENT: No facial asymmetry. Head is normocephalic and atraumatic. PERRLA. Trachea midline. Cardiovascular: Heart regular rate and rhythm without clicks, rubs, gallops, or murmurs. No JVD. PMI nondisplaced. No pedal edema. Respiratory: Symmetric chest rise with poor respiratory effort. Prolonged expiratory phase. Bilateral breath sounds have diifuse wheeze with bilateral bibasilar expiratory sounds. Abdomen: Scaphoid. Bowel sounds present normoactive x-4 quadrants. Abdomen is soft, nondistended, and nontender. No organomegaly noted. Psych: Patient's affect is appropriate for situation. - General Limitations: age General appearance: alert Course Course Narrative: Patient has hx of LIDIA requiring admission. Recently has been here the last few Sundays. Will EKG, CXR, basic labs. Elliso jayashree x3 and re-evaluate. Patient's presentation is concerning for acute exacerbation of COPD plus or minus underlying infection. Her well to his triple therapy of DuoNeb's. Even so, his O2d saturation is in the mid 90s on 5 L (baseline 4 L at home). He is diffusely wheezy with coarse crackles in the left lower lung base. Concern is for healthcare associated pneumonia. We will recommend admission for acute on chronic respiratory failure in the setting of healthcare associated pneumonia. Shared decision- making with the patient and his family, we agreed to admit the patient continued IV antibiotics and respiratory therapy. We will page the hospitalist. 15:[address] Faria, hospitalist on admitting duty. He agrees with my assessment and recommends a repeat chest CT to evaluate possibility of acute pneumonia versus chronic lung findings. We will hold off on antibiotics until CT is resulted. He agrees to accept the patient for admission. Vital Signs Temperature 99 F 12/26/16 12:57 Pulse Rate 106 12/26/16 12:57 Respiratory Rate 20 12/26/16 12:57 Blood Pressure 185/93 12/26/16 12:57 O2 Sat by Pulse Oximetry 92 L 12/26/16 12:57 Temperature 99 F 12/26/16 12:57 Pulse Rate 92 12/26/16 16:58 Respiratory Rate 18 12/26/16 17:38 Blood Pressure 155/106 12/26/16 17:38 O2 Sat by Pulse Oximetry 97 12/26/16 16:58 Oxygen Delivery Oxygen Delivery Room Air Shortness of Breath/Dyspnea - MDM Narrative Medical decision making narrative: I examined this patient and my medical decision-making was reviewed with the BRICK MAKER/PA/Advanced Practice Nurse/Resident Physician. I agree with the documented findings, disposition and treatment plan as described except to the extent set forth below. Patient was evaluated with Dr. Jacobsen myself, I agree with his evaluation and management plan, supravascular patient's stay. Patient has a long history of COPD continues to smoke his says premature every week he has an exacerbation he suspend 4 L of oxygen at home. Wheezing and coughing here conversationally dyspneic 2-3 words. Doing breathing treatments chest x-ray and a workup on him and then we will reassess. He is in agreement with this plan. Chest X-Ray 12/26/16 12:58 IMPRESSION: Increase in left basilar opacity which may be related to edema, atelectasis, or infection. D/ / Tasia Lovell MD / Tasia Lovell MD Interpreting Provider: Tasia Lovell MD 1440 hrs.: Patient still having some wheezing. Still has an oxygen requirement has an 18,000 white count which is new. Chest x-ray shows some old changes nothing is new and equal primary need to bring him into the hospital for further evaluation and assessment. Since his admission was less than a month ago we may need to treat this as a hospital-acquired infection which we will speak with hospitalist about that also. 1520 hrs.: Spoke with hospitalist, and he agrees no antibiotics at this time repeat the CT of the chest to see if this is pneumonia or what other pathology could be there we talked the CT about that. Patient's agreement with staying in the hospital. Impressions acute exacerbation of COPD, leukocytosis which could be infection or steroids. And hypoxia. Chest X-Ray 12/26/16 12:58 IMPRESSION: Increase in left basilar opacity which may be related to edema, atelectasis, or infection. D/ / Tasia Lovell MD / Tasia Lovell MD Interpreting Provider: Tasia Lovell MD Chest CT 12/26/16 15:20 IMPRESSION: 1. Mucous plugging and consolidative opacities in the left lower lobe and lingula and possibly to a very mild degree of the right lung base compatible with an infectious or inflammatory process. 2. Severe COPD. 3. Mildly enlarged paratracheal lymph node unchanged from 12/06/2016. 4. Small unchanged pericardial effusion. D/ / Rolando Abraham MD / Rolando Abraham MD Interpreting Provider: Rolando Abraham MD - Lab Data Result diagrams: 12/26/16 13:40 12/26/16 13:40 Lab Results 12/26/16 12/26/16 Range/Units 13:40 13:40 WBC 18.0 H (4.3-11.1) K/mcL RBC 3.44 L (4.19-5.50) M/mcL Hgb 10.8 L (12.9-16.9) g/dL Hct 33.9 L (37.5-50.1) % MCV 98.5 (83.0-100.0) fL MCH 31.4 (28.0-33.3) pg MCHC 31.9 (31.6-35.5) g/dL RDW 12.6 (11.5-14.5) % Plt Count 196 (140-400) K/mcL MPV 10.4 (9.4-12.4) fL Immature Gran % 0.4 (0-4) % Seg Neutrophils % 94.3 % Lymphocytes % 1.3 % Monocytes % 3.9 % Eosinophils % 0.0 % Basophils % 0.1 % Neutrophils # 17.0 H (1.6-8.9) K/mcL Lymphocytes # 0.2 L (0.6-4.6) K/mcL Monocytes # 0.7 (0.0-1.3) K/mcL Eosinophils # 0.0 (0.0-0.6) K/mcL Basophils # 0.0 (0.0-0.2) K/mcL Sodium 138 (136-145) mEq/L Potassium 4.0 (3.5-4.5) mEq/L Chloride 96 L (98-109) mEq/L Carbon Dioxide 34 H (19-29) mEq/L BUN 19 (8-26) mg/dL Creatinine 0.83 (0.72-1.25) mg/dL Est GFR ( Amer) > 60 (> 60) Est GFR (Non-Af Amer) > 60 (> 60) BUN/Creatinine Ratio 23 (6-26) Glucose 138 H (70-99) mg/dL Calculated Osmolality 290 (280-300) Calcium 9.8 (8.6-10.8) mg/dL - EKG Data EKG attestation: Yes I reviewed and interpreted this EKG. EKG results narrative: EKG dated 12/26/16 with a sinus tachycardia with rate 100. Normal intervals. Extreme left axis. Left anterior fascicular block. Patient is chest pain-free during this EKG. Compared to previous dated 12/06/2016 shows no acute ischemic changes in comparison.
[2016-12-26 13:55] LABS: Basophils % 0.1 %; Hematocrit 33.9 % (37.5-50.1); Hemoglobin 10.8 g/dL (12.9-16.9); Immature Granulocytes % 0.4 % (0-4); Lymphocytes # 0.2 K/mcL (0.6-4.6); Lymphocytes % 1.3 %; Mean Corpuscular HGB Conc 31.9 g/dL (31.6-35.5); Mean Corpuscular Hemoglobin 31.4 pg (28.0-33.3); Mean Corpuscular Volume 98.5 fL (83.0-100.0); Mean Platelet Volume 10.4 fL (9.4-12.4); Monocytes # 0.7 K/mcL (0.0-1.3); Monocytes % 3.9 %; Platelet Count 196 K/mcL (140-400); Red Blood Count 3.44 M/mcL (4.19-5.50); Red Cell Distribution Width 12.6 % (11.5-14.5); Segmented Neutrophils % 94.3 %
[2016-12-26 14:13] LABS: BUN/Creatinine Ratio 23 (6-26); Blood Urea Nitrogen 19 mg/dL (8-26); Calcium 9.8 mg/dL (8.6-10.8); Carbon Dioxide 34 mEq/L (19-29); Chloride 96 mEq/L (98-109); Glucose 138 mg/dL (70-99); Osmolality,Calculated 290 (280-300); Sodium 138 mEq/L (136-145); eGFR For African Americans > 60 (> 60); eGFR For Non-African Americans > 60 (> 60)
[2016-12-26] MEDS ORDERED: methylPREDNISolone 125 MG/2 ML VIAL IV ONE (14:40)
[2016-12-26] MEDS ORDERED: Acetaminophen 325 MG TABLET PO PRN (19:19)
[2016-12-26] MEDS ORDERED: Naloxone 0.4 MG/ML INJ IVP PRN (19:19)
[2016-12-26] MEDS ORDERED: Ondansetron 4 MG/2 ML VIAL IVP PRN (19:19)
[2016-12-26] MEDS ORDERED: Albuterol 2.5 MG/3 ML NEBULIZER IH PRN (19:25)
--- NOTE | 2016-12-26 19:36 | Internal Med History&Physical ---
<Libertad Damian - Last Filed: 12/27/16 00:32> Date of Encounter: 12/27/16 Time of Encounter: 18:30 Assessment and Plan (1) Acute and chronic respiratory failure with hypoxia Current visit: No Status: Acute 1 patient presented hypoxic SPO2 88-90 despite being on oxygen. We will continue with oxygen titrated to maintain SPO2 greater than 92% patient may require BiPAP 2 continuous SPO2 monitoring 3 bronchodilators (2) Acute exacerbation of chronic obstructive pulmonary disease Current visit: Yes Status: Acute 1 she is oxygen dependent on 4 L nasal cannula home has been expressing increasing shortness of breath despite the use of bronchodilators and increase in oxygen. We will continue with oxygen support titrated to maintain SPO2 greater 90% patient may require BiPAP support 2 we will continue with bronchodilators 3 Solu-Medrol [address] did reveal some mucus plugging- dictated speak with pulmonary request that patient receive chest percussion per respiratory therapy 5 we will make patient nothing by mouth pulmonary will evaluate in a.m. for possible bronchoscopy (3) Community acquired pneumonia Current visit: Yes Status: Acute 1 patient does have elevation in white count 18 this can be related to chronic steroid use or infectious process. With cough shortness of breath and radiograph suspicious for infectious process will initiate on antibiotics Levaquin and Zosyn, will monitor CBC 2 we will continue with oxygen support, steroids and bronchodilators (4) Protein-calorie malnutrition, moderate Current visit: No Status: Acute 1 patient's severe cachectic- we will consult dietary for nutritional supplements (5) Tobacco abuse Current visit: No Status: Chronic 1 patient continues to smoke half pack a day encouraged patient to stop smoking - nicotine patch (6) DVT prophylaxis Current visit: Yes Status: Acute [facility] Internal Medicine - H&P: HPI Chief complaint: SOB Admitted From: Emergency Dept Plans for Post Hospital Care: Home History of present illness: Mr. Becker is a 81 year old male with past history of hypertension COPD oxygen dependent chronic malnutrition history of prostate cancer tobacco abuse.. According to patient he has been experiencing increasing shortness of breath of breath on exertion over the past 2 days. He is also independent home on 4 L nasal cannula even with oxygen and he continues to be short of breath. He is used his breathing treatments with little relief at times experiencing chest tightness during exertion. According to ER notes patient did call EMS and upon arrival patient was on 4 L of O2 sats were only 86% he was getting himself albuterol treatments. EMS placed patient on 5 L his oxygen saturation increased the mid 90s and was transported to the ER for further evaluation. Patient was given DuoNeb is supple arrival in the ER he continued to have wheezy coarse crackles and some concern for pneumonia chest x-ray was obtained did reveal left basilar pacer the which may be related to edema and atelectasis or infection. CT chest was obtained which did reveal mucus plugging and consolidative opacities in the left lower lobe compatible with infectious or inflammatory process. Lab work did reveal elevated white count at 18 Patient was given steroids IV steroids patient was admitted for further workup and evaluation. Upon assessment patient does not appear to be in any respiratory distress this time. He does have scattered crackles and rhonchi throughout lung hanna no cough noted at this time. Oxygen saturation is 94-95% on 5 L. Reviewed this case with Dr. mckeon who agrees with plan Past Med Surg Social Fam HX - Past Medical History Medical history: COPD, hypertension, other Psychiatric history: no psych history - Past Surgical History Surgical History: no surgical history - Social History Smoking Status: Current every day smoker Packs per day: 1 Smokeless Tobacco Status: No Alcohol use: none Drug use: none - Family History Brother Living Status: Still Living Hx Family Endocrine Disorder: Yes (Diabetes) Internal Medicine - H&P: Meds Albuterol Neb [Proventil Neb] 2.5 mg IH PRN PRN 06/16/15 [History] Albuterol Sulfate [Albuterol Inhaler] 2 puff IH PRN PRN 06/16/15 [History] Chlordiazepoxide [Librium] 10 mg PO BID 06/16/15 [History] Ascorbate Calcium [Vitamin C] 500 mg PO DAILY 12/06/16 [History] Cranberry 500 mg PO DAILY 12/06/16 [History] Diphenoxylate/Atropine [Lomotil 2.5 mg/0.025 mg] 1 tab PO BID 12/06/16 [History] Multivitamin [Multi-Day Vitamins] 1 tab PO DAILY 12/06/16 [History] GuaiFENesin ER [Mucinex] 600 mg PO BID PRN #30 tbbp.12hr 12/08/16 [Rx] Lactose-Reduced Food [Ensure Plus] 1 bottle PO TID #90 can 12/08/16 [Rx] PredniSONE 10 mg PO DAILY #80 tablet 12/08/16 [Rx] Budesonide/Formoterol 160/4.5 [Symbicort] 2 puff IH BID 12/26/16 [History] Cyanocobalamin (Vitamin B-12) [Vitamin B12] 1,000 mcg PO DAILY 12/26/16 [History ] Allergies No Known Allergies Allergy (Verified 12/26/16 16:34) All Systems PM: A 10-system review of systems was performed and is negative for pertinent findings except as documented above in the HPI. - Constitutional Constitutional: anorexia, fatigue, weight loss - Cardiovascular Cardiovascular ROS IM: dyspnea, dyspnea on exertion, no chest pain, no diaphoresis, no lightheadedness, no palpitations, no syncope - Respiratory Respiratory: cough, dyspnea on exertion, wheezing - Gastrointestinal Gastrointestinal: no abdominal pain, no diarrhea, no hematemesis, no hematochezia, no melena, no nausea, no vomiting - Musculoskeletal Musculoskeletal ROS IM: no numbness, no tingling - Integumentary Integumentary IM: no rash, no unusual bruising - Neurological Neurological ROS: no confusion, no convulsions, no focal weakness, no numbness, no tingling, no tremor(s) - Hematologic/Lymphatic Hematologic/Lymphatic: no easy bruising - Constitutional Vitals: Temp Pulse Resp BP Pulse Ox 98.6 F 102 20 163/83 94 L 12/26/16 18:21 12/26/16 18:21 12/26/16 18:21 12/26/16 18:21 12/26/16 18:21 General appearance: Present: cachectic, A&O X 3, answers questions appropriately - Head Head exam: Present: atraumatic, normocephalic - Eye Eye exam: Present: PERRL, conjuntiva pink, sclera anicteric Pupils: Present: PERRL - Respiratory Respiratory exam: Present: prolonged expiratory phase, rhonchi, wheezes. Absent : accessory muscle use, rales - Cardiovascular Cardiovascular exam: Present: RRR, +S1, +S2. Absent: diastolic murmur, gallop, rubs, systolic murmur - GI/Abdominal GI/Abdominal exam: Present: normal bowel sounds, soft, no peritoneal signs. Absent: distended, tenderness - Extremities Exam Extremities exam: Present: warm, radial pulses palpable and symetrical. Absent : calf tenderness, cyanotic, pedal edema - Neurological Exam Neurological exam: Present: CN II-XII intact, oriented X3, no focal deficits. Absent: pronater drift, facial droop, speech deficit - Skin Skin exam: Present: dry, intact Internal Med - H&P Results - Labs CBC & Chem 7: 12/26/16 13:40 12/26/16 13:40 - EKG Data Rate: tachycardia - EKG Data Prior EKG available for review: no When compared to previous EKG: there is no significant change EKG comments: 12/27/16 00:18 Left atrial enlargement with left anterior pillar block which is present on previous EKG - Diagnostic Studies Chest x-ray Additional comments: Radiology read increase in the basilar opacity which may be related to edema atelectasis or infection. CT scan - chest Additional comments: CT of chest mucus plugging and consolidative V's in the left lower lobe and lingula and possibly to a very mild degree of the right lung base compatible with the an infectious or inflammatory process Severe COPD Mildly enlarged paratracheal lymph nodes unchanged from 12/06/2016 Small unchanged pericardial effusion <Rodrigo Mckeon - Last Filed: 12/27/16 08:19> Date of Encounter: 12/27/16 Internal Medicine - H&P: HPI History of present illness: Mr. Becker is a 81 year old male All Systems PM: A 10-system review of systems was performed and is negative for pertinent findings except as documented above in the HPI. - Constitutional Vitals: Temp Pulse Resp BP Pulse Ox 98.1 F 90 17 139/78 94 L 12/27/16 08:09 12/27/16 08:09 12/27/16 08:09 12/27/16 08:09 12/27/16 08:09 Internal Med - H&P Results - Labs CBC & Chem 7: 12/27/16 04:27 12/27/16 04:27 Labs: Short CBC 12/27/16 Range/Units 04:27 WBC 13.8 H (4.3-11.1) K/mcL Hgb 10.0 L (12.9-16.9) g/dL Hct 30.9 L (37.5-50.1) % Plt Count 191 (140-400) K/mcL Neutrophils # 13.4 H (1.6-8.9) K/mcL BMP 12/27/16 04:27 Sodium 135 L Potassium 4.7 H Chloride 94 L Carbon Dioxide 33 H BUN 22 Creatinine 0.93 Glucose 125 H Calcium 9.4 - Attending Attestation I examined this patient and my medical decision-making was reviewed with the Advanced Practice Provider. I agree with the documented findings, disposition and treatment plan as described except to the extent set forth below. On exam the patient is in no acute distress, speaking in full sentences, he appears frail and malnourished. Lung exam reveals Rales in the left lower lobe and diffuse expiratory wheezes. Plan: For COPD and pneumonia and mucous plugging will treat the patient with Zosyn and Levaquin inhaled bronchodilators, IV steroids. We will consult pulmonary for possible need for bronchoscopy. For severe protein calorie malnutrition we will consult dietary for nutritional supplements.
[2016-12-26] MEDS: Budesonide/Formoterol 160/4.5 MDI IH SCH (19:46)
[2016-12-26] MEDS ORDERED: Levofloxacin 750 MG/150 ML 750 MG/150 ML BAG IVPB SCH (20:00)
[2016-12-26] MEDS ORDERED: Piperacillin/Tazobactam 3.375 GM in D5% in Water (Mini-Bag+) 100 ML IVPB SCH (20:00)
[2016-12-26] MEDS ORDERED: Ipratropium/Albuterol Neb 3 ML IH SCH (20:00)
[2016-12-26] MEDS: Piperacillin/Tazobactam 3.375 GM in D5% in Water (Mini-Bag+) 100 ML IVPB SCH (23:25)
[2016-12-26] MEDS: methylPREDNISolone 125 MG/2 ML VIAL IVP SCH (23:53)
[2016-12-27] MEDS: Ipratropium/Albuterol Neb 3 ML IH SCH ×5 (00:19→22:37)
[2016-12-27 05:03] LABS: Hematocrit 30.9 % (37.5-50.1); Immature Granulocytes % 0.6 % (0-4); Lymphocytes # 0.1 K/mcL (0.6-4.6); Lymphocytes % 0.8 %; Mean Corpuscular HGB Conc 32.4 g/dL (31.6-35.5); Mean Corpuscular Hemoglobin 31.3 pg (28.0-33.3); Mean Corpuscular Volume 96.9 fL (83.0-100.0); Mean Platelet Volume 10.6 fL (9.4-12.4); Monocytes # 0.2 K/mcL (0.0-1.3); Monocytes % 1.2 %; Neutrophils # 13.4 K/mcL (1.6-8.9); Platelet Count 191 K/mcL (140-400); Red Blood Count 3.19 M/mcL (4.19-5.50); Red Cell Distribution Width 12.4 % (11.5-14.5); Segmented Neutrophils % 97.4 %
[2016-12-27 05:16] LABS: BUN/Creatinine Ratio 24 (6-26); Blood Urea Nitrogen 22 mg/dL (8-26); Calcium 9.4 mg/dL (8.6-10.8); Carbon Dioxide 33 mEq/L (19-29); Chloride 94 mEq/L (98-109); Glucose 125 mg/dL (70-99); Osmolality,Calculated 285 (280-300); Potassium 4.7 mEq/L (3.5-4.5); Sodium 135 mEq/L (136-145); eGFR For African Americans > 60 (> 60); eGFR For Non-African Americans > 60 (> 60)
[2016-12-27 05:26] LABS: Platelet Estimate Normal (Normal); Toxic Granulation Present (Not Present)
[2016-12-27] MEDS: Piperacillin/Tazobactam 3.375 GM in D5% in Water (Mini-Bag+) 100 ML IVPB SCH ×3 (05:45→21:12)
[2016-12-27] MEDS: *HR* Enoxaparin 40 MG/0.4 ML SYRINGE SQ SCH (05:47)
[2016-12-27] MEDS: methylPREDNISolone 125 MG/2 ML VIAL IVP SCH ×3 (05:47→17:36)
[2016-12-27] MEDS: Nicotine 14 MG PATCH.TD24 TD SCH (10:08)
[2016-12-27] MEDS: Ascorbic Acid 500 MG TABLET PO SCH (10:10)
[2016-12-27] MEDS: Cyanocobalamin (B-12) 1,000 MCG TABLET PO SCH (10:10)
[2016-12-27] MEDS: Multivit/Ca/Min/Fe/FA 1 TAB TABLET PO SCH (10:10)
[2016-12-27] MEDS: (Cranberry [Cranberry] 500 MG) PO SCH (10:16)
[2016-12-27] MEDS: Budesonide/Formoterol 160/4.5 MDI IH SCH ×2 (11:25→22:36)
[2016-12-27 13:01] LABS: Adenovirus Not Detected (Not Detect); Bordetella Pertussis Not Detected (Not Detect); Chlamydophila pneumoniae Not Detected (Not Detect); Coronavirus 229E Not Detected (Not Detect); Coronavirus HKU1 Not Detected (Not Detect); Coronavirus NL63 Not Detected (Not Detect); Coronavirus OC43 Not Detected (Not Detect); Human Metapneumovirus Not Detected (Not Detect); Human Rhinovirus/Enterovirus Not Detected (Not Detect); Influenza A Subtype 2009 H1 Not Detected (Not Detect); Influenza A Untypeable Not Detected (Not Detect); Influenza B Not Detected (Not Detect); Mycoplasma pneumoniae Not Detected (Not Detect); Parainfluenza Virus 1 Not Detected (Not Detect); Parainfluenza Virus 2 Not Detected (Not Detect); Parainfluenza Virus 3 Not Detected (Not Detect); Parainfluenza Virus 4 Not Detected (Not Detect); Respiratory Syncytial Virus Not Detected (Not Detect)
--- NOTE | 2016-12-27 13:40 | Pulmonology Consult Note ---
Date of Encounter: 12/27/16 Time of Encounter: 13:39 Assessment and Plan (1) Acute and chronic respiratory failure with hypoxia Current Visit: No Status: Acute This is secondary to pneumonia with COPD exacerbation Wean FiO2 to keep saturations greater than 88-92% Encourage spirometry out of bed to chair as tolerated early ambulation (2) Community acquired pneumonia Current Visit: Yes Status: Acute Patient presenting with pneumonia and infectious viral panel negative sputum culture pending blood cultures pending legionella and strep pneumo antigens have been ordered and are pending. He is on coverage for atypical organisms as well as possibility of pseudomonal infection. The evidence of mucous plugging is very mild and no significant collapse associated with it no acute indication for bronchoscopy and chest x-ray that was performed today was without significant change Recommend continued bronchodilators and would add airway clearance device including Acapella which can be facilitated by respiratory therapy (3) Acute exacerbation of chronic obstructive pulmonary disease Current Visit: Yes Status: Acute Continue bronchodilators continue steroids can likely transition to enteral steroids prednisone 40 mg for 2 week taper. Smoking cessation crucial (4) DVT prophylaxis Current Visit: Yes Status: Acute (5) Tobacco abuse Current Visit: No Status: Chronic Waite on the effects of smoking in the lung including if he stops now likely decrease risk of recurrent COPD exacerbations all questions answered recommended taking replacement History of Present Illness Consult date: 12/27/16 Requesting physician: Rodrigo Hassan Reason for consult: pneumonia Chief complaint: Shortness of breath History of present illness: This is an 81-year-old gentleman with a history of COPD long-standing tobacco abuse and coronary day smoker and chronic respiratory failure requiring oxygen who presented with difficulty breathing after 2-3 days' duration also cough that has been productive of phlegm and wheezing. Upon admission to the ED was noted to be saturating in the high 80s low 90s and had an elevated white count and CT was obtained which was suggestive of left pneumonia which is multifocal also a small left pleural effusion. There is also noted some mucus plugging and concern for need for bronchoscopy and pulmonary was consulted. He denies fevers and hemoptysis but has endorsed generalized fatigue and malaise. Patient started smoking as teenagers continues to smoke a half a pack a day at least he has been diagnosed with COPD and uses inhalers he is not sure exactly which ones but uses them daily he has had admissions for COPD exacerbations in the past. 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 He does not keep any pets no sick contacts denies recent travel Past Med Surg Social Fam HX - Past Medical History Medical history: COPD, hypertension, other Psychiatric history: no psych history - Past Surgical History Surgical History: no surgical history - Social History Smoking Status: Current every day smoker Packs per day: 1 Smokeless Tobacco Status: No Alcohol use: none Drug use: none - Family History Brother Living Status: Still Living Hx Family Endocrine Disorder: Yes (Diabetes) Medications and Allergies Albuterol Neb [Proventil Neb] 2.5 mg IH PRN PRN 06/16/15 [History] Albuterol Sulfate [Albuterol Inhaler] 2 puff IH PRN PRN 06/16/15 [History] Chlordiazepoxide [Librium] 10 mg PO BID 06/16/15 [History] Ascorbate Calcium [Vitamin C] 500 mg PO DAILY 12/06/16 [History] Cranberry 500 mg PO DAILY 12/06/16 [History] Diphenoxylate/Atropine [Lomotil 2.5 mg/0.025 mg] 1 tab PO BID 12/06/16 [History] Multivitamin [Multi-Day Vitamins] 1 tab PO DAILY 12/06/16 [History] GuaiFENesin ER [Mucinex] 600 mg PO BID PRN #30 tbbp.12hr 12/08/16 [Rx] Lactose-Reduced Food [Ensure Plus] 1 bottle PO TID #90 can 12/08/16 [Rx] PredniSONE 10 mg PO DAILY #80 tablet 12/08/16 [Rx] Budesonide/Formoterol 160/4.5 [Symbicort] 2 puff IH BID 12/26/16 [History] Cyanocobalamin (Vitamin B-12) [Vitamin B12] 1,000 mcg PO DAILY 12/26/16 [History ] Allergies No Known Allergies Allergy (Verified 12/26/16 16:34) All Systems: A 10-system review of systems was performed and is negative for pertinent findings except as documented above in the HPI. Physical Examination Vital Signs: Vital Signs, Last 4 Hours Temp Pulse Resp BP Pulse Ox 12/27/16 12:04 98.3 F 98 19 133/71 95 12/27/16 11:25 18 94 L General appearance: no acute distress Eyes: nonicteric ENT: oropharynx moist Neck: no lymphadenopathy Effort: normal Auscultation: bilateral: diminished breath sounds, rales, rhonchi Cardiovascular: regular rate and rhythm Gastrointestinal: normoactive bowel sounds Integumentary: normal Extremities: no edema normal mental status, non-focal exam mood appropriate Results - Laboratory Findings CBC and BMP: 12/27/16 04:27 12/27/16 04:27 Abnormal lab findings: Abnormal lab results WBC 13.8 K/mcL (4.3-11.1) H 12/27/16 04:27 RBC 3.19 M/mcL (4.19-5.50) L 12/27/16 04:27 Hgb 10.0 g/dL (12.9-16.9) L 12/27/16 04:27 Hct 30.9 % (37.5-50.1) L 12/27/16 04:27 Neutrophils # 13.4 K/mcL (1.6-8.9) H 12/27/16 04:27 Lymphocytes # 0.1 K/mcL (0.6-4.6) L 12/27/16 04:27 Toxic Granulation Present (Not Present) A 12/27/16 04:27 Sodium 135 mEq/L (136-145) L 12/27/16 04:27 Potassium 4.7 mEq/L (3.5-4.5) H 12/27/16 04:27 Chloride 94 mEq/L (98-109) L 12/27/16 04:27 Carbon Dioxide 33 mEq/L (19-29) H 12/27/16 04:27 Glucose 125 mg/dL (70-99) H 12/27/16 04:27 - Diagnostic Findings Chest x-ray: report reviewed, image reviewed CT scan - chest: report reviewed, image reviewed - Clinical Findings Intake & Output: Intake & Output 12/26/16 12/27/16 12/27/16 23:59 07:59 15:59 Intake Total 480 / 480 250 / 250 100 / 100 Output Total 400 / 1325 575 / 575 250 / 250 Balance 80 / -845 -325 / -325 -150 / -150 Weight 45.314 kg Consult Discharge Plan - Plan Referrals: Radha Hicks, CLINICAL FIELD SPECIALIST [Primary Care Provider] -
--- NOTE | 2016-12-27 14:10 | Electrocardiograph Report ---
[place] [id number] Test Date: 2016-12-26 Pat Name: Alonso Becker Department: 105 Room: 2A32 Gender: M [employer]: : 1935 Requested By: Carlo Osuna Order Number: [id number] Reading MD: Yumiko Fabian Measurements Intervals [place] Rate: 100 P: 94 MT: 129 QRS: -83 QRSD: 96 T: 70 QT: 313 QTc: 370 Interpretive Statements SINUS TACHYCARDIA LEFT ATRIAL ENLARGEMENT [-0.15mV P WAVE IN V1/V2] POSSIBLE RIGHT VENTRICULAR CONDUCTION DELAY [RSR (QR) IN V1/V2] LEFT ANTERIOR FASCICULAR BLOCK [QRS AXIS <= -45, QR IN I, RS IN II] POSSIBLE ANTERIOR MYOCARDIAL INFARCTION [30 ms Q WAVE IN V3/V4, OR R < 0.2 mV IN V4], OF INDETERMINATE AGE Electronically Signed On 12-27-2016 14:08:46 EST by Yumiko Fabian
--- NOTE | 2016-12-27 16:01 | Internal Med Progress Note ---
Date of Encounter: 12/27/16 Time of Encounter: 15:59 - Assessment and plan (1) Acute exacerbation of chronic obstructive pulmonary disease Current Visit: Yes Status: Acute Assessment and plan: he is oxygen dependent on 4 L nasal cannula home , clinically better. We will continue with oxygen support titrated to maintain SPO2 greater 88% we will continue with bronchodilators will continue Solu-Medrol for now, start tapering from tomm. CT did reveal some mucus plugging- pulmonary consulted :::Recommend continued bronchodilators and add airway clearance device including Acapella which can be facilitated by respiratory therapy. (2) Community acquired pneumonia Current Visit: Yes Status: Acute Assessment and plan: will continue levoflox and zosyn, sputum for legionella is negative, will stop levoflox. will continue zosyn.leucocytosis has improved, no fever (3) Tobacco abuse Current Visit: No Status: Chronic - Time Spent With Patient 25 - 35 minutes - Subjective Interval history: seen at the bedside, c/o mild sob and cough with productive sputum. has advanced COPD. admitted for pneumonia with mucus plugging. appreciate pulmonary recommendtaions - Constitutional Vitals: Temp Pulse Resp BP Pulse Ox 98.7 F 106 18 146/69 94 L 12/27/16 15:36 12/27/16 15:36 12/27/16 15:36 12/27/16 15:36 12/27/16 15:36 General appearance: Present: cachectic, A&O X 3, answers questions appropriately Exam: - Head Head exam: Present: atraumatic, normocephalic - Eye Eye exam: Present: PERRL, conjuntiva pink, sclera anicteric Pupils: Present: PERRL - Respiratory Respiratory exam: Present: prolonged expiratory phase, mild rhonchi and wheezing. Absent: accessory muscle use, rales - Cardiovascular Cardiovascular exam: Present: RRR, +S1, +S2. Absent: diastolic murmur, gallop, rubs, systolic murmur - GI/Abdominal GI/Abdominal exam: Present: normal bowel sounds, soft, no peritoneal signs. Absent: distended, tenderness - Extremities Exam Extremities exam: Present: warm, radial pulses palpable and symetrical. Absent : calf tenderness, cyanotic, pedal edema - Neurological Exam Neurological exam: Present: CN II-XII intact, oriented X3, no focal deficits. Absent: pronater drift, facial droop, speech deficit - Skin Skin exam: Present: dry, intact Internal Medicine: Result - Labs CBC & Chem 7: 12/27/16 04:27 12/27/16 04:27 Labs: Short CBC 12/27/16 Range/Units 04:27 WBC 13.8 H (4.3-11.1) K/mcL Hgb 10.0 L (12.9-16.9) g/dL Hct 30.9 L (37.5-50.1) % Plt Count 191 (140-400) K/mcL Neutrophils # 13.4 H (1.6-8.9) K/mcL BMP 12/27/16 04:27 Sodium 135 L Potassium 4.7 H Chloride 94 L Carbon Dioxide 33 H BUN 22 Creatinine 0.93 Glucose 125 H Calcium 9.4 - Impressions Impressions Chest X-Ray 12/27/16 09:00 IMPRESSION: Stable chest x-ray. D/ / Cody Sylvester MD / Cody Sylvester MD Interpreting Provider: Cody Sylvester MD Consult Discharge Plan - Plan Referrals: Radha Hicks, VETERINARY TECHNOLOGIST [Primary Care Provider] -
[2016-12-28] MEDS: methylPREDNISolone 125 MG/2 ML VIAL IVP SCH ×4 (00:39→17:35)
[2016-12-28] MEDS: Ipratropium/Albuterol Neb 3 ML IH SCH ×4 (04:45→22:54)
[2016-12-28] MEDS: Piperacillin/Tazobactam 3.375 GM in D5% in Water (Mini-Bag+) 100 ML IVPB SCH ×3 (05:32→22:44)
[2016-12-28] MEDS: *HR* Enoxaparin 40 MG/0.4 ML SYRINGE SQ SCH (05:32)
[2016-12-28 07:11] LABS: Chloride 96 mEq/L (98-109); Potassium 4.2 mEq/L (3.5-4.5); Sodium 137 mEq/L (136-145)
[2016-12-28 07:19] LABS: Hemoglobin 9.9 g/dL (12.9-16.9); Immature Granulocytes % 0.6 % (0-4); Lymphocytes # 0.2 K/mcL (0.6-4.6); Lymphocytes % 1.9 %; Mean Corpuscular HGB Conc 31.9 g/dL (31.6-35.5); Mean Corpuscular Hemoglobin 30.6 pg (28.0-33.3); Mean Corpuscular Volume 95.7 fL (83.0-100.0); Mean Platelet Volume 10.4 fL (9.4-12.4); Monocytes # 0.3 K/mcL (0.0-1.3); Monocytes % 2.3 %; Neutrophils # 11.5 K/mcL (1.6-8.9); Platelet Count 204 K/mcL (140-400); Red Blood Count 3.24 M/mcL (4.19-5.50); Red Cell Distribution Width 12.5 % (11.5-14.5); Segmented Neutrophils % 95.2 %
[2016-12-28] MEDS: Ascorbic Acid 500 MG TABLET PO SCH (08:04)
[2016-12-28] MEDS: Multivit/Ca/Min/Fe/FA 1 TAB TABLET PO SCH (08:04)
[2016-12-28] MEDS: Nicotine 14 MG PATCH.TD24 TD SCH (08:04)
[2016-12-28] MEDS: (Cranberry [Cranberry] 500 MG) PO SCH (08:05)
[2016-12-28] MEDS: Cyanocobalamin (B-12) 1,000 MCG TABLET PO SCH (08:05)
[2016-12-28 08:16] LABS: BUN/Creatinine Ratio 22 (6-26); Calcium 9.6 mg/dL (8.6-10.8); Carbon Dioxide 34 mEq/L (19-29); Glucose 160 mg/dL (70-99); Osmolality,Calculated 293 (280-300); eGFR For African Americans > 60 (> 60); eGFR For Non-African Americans 54 (> 60)
[2016-12-28 08:19] LABS: Blood Urea Nitrogen 28 mg/dL (8-26)
[2016-12-28] MEDS: Budesonide/Formoterol 160/4.5 MDI IH SCH ×2 (10:48→22:54)
--- NOTE | 2016-12-28 17:40 | Internal Med Progress Note ---
Date of Encounter: 12/28/16 Time of Encounter: 17:38 - Assessment and plan (1) Acute exacerbation of chronic obstructive pulmonary disease Current Visit: Yes Status: Acute Assessment and plan: he is oxygen dependent on 4 L nasal cannula home , clinically better. We will continue with oxygen support titrated to maintain SPO2 greater 88% we will continue with bronchodilators We will start tapering Solu-Medrol today, 60 every [address] did reveal some mucus plugging- pulmonary consulted :::Recommend continued bronchodilators and add airway clearance device including Acapella which can be facilitated by respiratory therapy. No need for bronchoscopy at this time. (2) Community acquired pneumonia Current Visit: Yes Status: Acute Assessment and plan: will continue zosyn, sputum for legionella is negative, will stop levoflox. .leucocytosis has improved, no fever (3) Tobacco abuse Current Visit: No Status: Chronic - Time Spent With Patient 25 - 35 minutes - Subjective Interval history: seen at the bedside, still appears short of breath but says he feels better than yesterday., has advanced COPD admitted for pneumonia with mucus plugging. appreciate pulmonary recommendtaions Patient lives by himself with his and the takes care of him, he does not wish to go to ECF or rehabilitation. Family wants to talk to social director for possible home health, will order PT OT today - Constitutional Vitals: Temp Pulse Resp BP Pulse Ox 97.7 F 96 16 133/79 91 L 12/28/16 11:40 12/28/16 11:40 12/28/16 16:26 12/28/16 11:40 12/28/16 16:26 General appearance: Present: cachectic, A&O X 3, answers questions appropriately Exam: - Head Head exam: Present: atraumatic, normocephalic - Eye Eye exam: Present: PERRL, conjuntiva pink, sclera anicteric Pupils: Present: PERRL - Respiratory Respiratory exam: Present: prolonged expiratory phase, bilateral decreased breath sounds, occasional wheezing. Absent: accessory muscle use, rales - Cardiovascular Cardiovascular exam: Present: RRR, +S1, +S2. Absent: diastolic murmur, gallop, rubs, systolic murmur - GI/Abdominal GI/Abdominal exam: Present: normal bowel sounds, soft, no peritoneal signs. Absent: distended, tenderness - Extremities Exam Extremities exam: Present: warm, radial pulses palpable and symetrical. Absent : calf tenderness, cyanotic, pedal edema - Neurological Exam Neurological exam: Present: CN II-XII intact, oriented X3, no focal deficits. Absent: pronater drift, facial droop, speech deficit - Skin Skin exam: Present: dry, intact Internal Medicine: Result - Labs CBC & Chem 7: 12/28/16 06:42 12/28/16 06:42 Labs: Short CBC 12/28/16 Range/Units 06:42 WBC 12.1 H (4.3-11.1) K/mcL Hgb 9.9 L (12.9-16.9) g/dL Hct 31.0 L (37.5-50.1) % Plt Count 204 (140-400) K/mcL Neutrophils # 11.5 H (1.6-8.9) K/mcL BMP 12/28/16 06:42 Sodium 137 Potassium 4.2 Chloride 96 L Carbon Dioxide 34 H BUN 28 H Creatinine 1.28 H Glucose 160 H Calcium 9.6 Consult Discharge Plan - Plan Referrals: Radha Hicks, ANIYAH [Primary Care Provider] - 01/05/17 1:45 pm (Please follow up as schedule....)
[2016-12-29] MEDS: methylPREDNISolone 125 MG/2 ML VIAL IVP SCH ×2 (03:13→07:51)
[2016-12-29] MEDS: Ipratropium/Albuterol Neb 3 ML IH SCH ×3 (05:07→16:07)
[2016-12-29] MEDS: Piperacillin/Tazobactam 3.375 GM in D5% in Water (Mini-Bag+) 100 ML IVPB SCH (06:45)
[2016-12-29] MEDS ORDERED: *HR* Enoxaparin 30 MG/0.3 ML SYRINGE SQ SCH (07:00)
[2016-12-29] MEDS: Ascorbic Acid 500 MG TABLET PO SCH (08:01)
[2016-12-29] MEDS: Multivit/Ca/Min/Fe/FA 1 TAB TABLET PO SCH (08:01)
[2016-12-29] MEDS: Nicotine 14 MG PATCH.TD24 TD SCH (08:02)
[2016-12-29] MEDS: Cyanocobalamin (B-12) 1,000 MCG TABLET PO SCH (08:02)
[2016-12-29] MEDS ORDERED: 0.9 % Sodium Chloride 1,000 ML IVC ONE (09:55)
--- NOTE | 2016-12-29 10:26 | Discharge Summary ---
Date of Encounter: 12/29/16 Time of Encounter: 10:22 - Discharge Diagnosis (1) Acute exacerbation of chronic obstructive pulmonary disease Priority: Primary Status: Acute (2) Community acquired pneumonia Priority: Secondary Status: Acute Comments: No specific organism identified. (3) Tobacco abuse Priority: Secondary Status: Chronic - Discharge Medications Prescriptions: Amoxicillin/Clavulanate [Augmentin] 875 mg PO BIDWM #20 tablet Doxycycline Hyclate 100 mg PO BID #20 capsule PredniSONE 10 mg PO DAILY 12 Days Home Medications: Albuterol Neb [Proventil Neb] 2.5 mg IH PRN PRN 06/16/15 [History] Albuterol Sulfate [Albuterol Inhaler] 2 puff IH PRN PRN 06/16/15 [History] Chlordiazepoxide [Librium] 10 mg PO BID 06/16/15 [History] Ascorbate Calcium [Vitamin C] 500 mg PO DAILY 12/06/16 [History] Cranberry 500 mg PO DAILY 12/06/16 [History] Diphenoxylate/Atropine [Lomotil 2.5 mg/0.025 mg] 1 tab PO BID 12/06/16 [History] Multivitamin [Multi-Day Vitamins] 1 tab PO DAILY 12/06/16 [History] GuaiFENesin ER [Mucinex] 600 mg PO BID PRN #30 tbbp.12hr 12/08/16 [Rx] Lactose-Reduced Food [Ensure Plus] 1 bottle PO TID #90 can 12/08/16 [Rx] Budesonide/Formoterol 160/4.5 [Symbicort] 2 puff IH BID 12/26/16 [History] Cyanocobalamin (Vitamin B-12) [Vitamin B12] 1,000 mcg PO DAILY 12/26/16 [History ] Amoxicillin/Clavulanate [Augmentin] 875 mg PO BIDWM #20 tablet 12/29/16 [Rx] Doxycycline Hyclate 100 mg PO BID #20 capsule 12/29/16 [Rx] PredniSONE 10 mg PO DAILY 12 Days 12/29/16 [Rx] Allergies/Adverse Reactions: Allergies No Known Allergies Allergy (Verified 12/26/16 16:34) Date of admission: 12/26/16 19:19 Primary care physician: Radha Hicks CNP Consults: 12/26/16 19:30 Consult to Pulmonology [CONS] Routine Consulting Provider: [facility] Reason for Consult: pneumonia mucus plugging- possible bronchoscopy Time Notified: 19:32 Call Completed: Yes 12/27/16 08:20 dietary consult [Consult to Nutrition] [CONS] Routine Comment: Consulting Provider: NUTRITION Reason for Dietary Consult: Supplemental Nutrition 12/27/16 16:18 Consult to Respiratory Therapy [CONS] Routine Reason for Consult: please provide acapella device after breathing treatments. Call Completed: No 12/28/16 15:18 Consult to Occupational Therapy [CONS] Routine Comment: Evaluate, develop and implement POC Consult to Physical Therapy [CONS] Routine Comment: Evaluate, develop and implement POC Discharging clinician: Dorene Ross Anticipated date of discharge: 12/29/16 - Patient Status Disposition: Home Health Service Condition: Good Functional capacity at discharge: uses cane/walker Overall status at discharge: patient is progressing back to baseline - Discharge Instructions Instructions: Chronic Obstructive Pulmonary Disease (DC), Pneumonia (DC) Follow Up With: Radha Hicks CNP [Primary Care Provider] - 01/05/17 1:45 pm (Please follow up as schedule....) Ron Crespo MD [Partnered Physician] - (In 1-2 weeks for COPD) - Diet and Activity Activity: wear oxygen at all times Diet: low fat, low cholesterol, low salt diet Hospital course: Mr. Becker is a 81 year old male who has a history of chronic obstructive pulmonary disease, hypertension, prostate cancer and tobacco abuse was admitted here with acute hypoxic respiratory failure due to acute exacerbation of COPD. He was treated for this with IV steroids, nebulizer treatments and O2 supplementation. CT scan of the chest was obtained which showed some mucus plugging and consolidative opacities in the left lower lobe. Pulmonology was consulted. They recommended supportive care with no urgent need for bronchoscopy. Patient has since improved with O2 supplementation and this treatment regimen. His now feeling much better. He denies any significant shortness of breath at this time. He is eager to go home and will follow up with pulmonology as outpatient. She will be discharged on a steroid taper and short course of antibiotics with Augmentin and doxycycline for acute pneumonia. Patient has slight elevation in his BUN and creatinine today. Likely from related to dehydration. This should improve with IV hydration was the patient will receive prior to discharge. He is not on any nephrotoxic agents. - Time Spent with Patient Total time spent providing and/or coordinating discharge services: Greater than 30 minutes (35 min) - Constitutional Vitals: Temp Pulse Resp BP Pulse Ox 98.1 F 86 18 149/86 94 L 12/29/16 07:41 12/29/16 07:41 12/29/16 07:41 12/29/16 07:41 12/29/16 08:03 General appearance: Present: cachectic, A&O X 3, answers questions appropriately - Respiratory Respiratory exam: Present: decreased breath sounds (bilaterally), prolonged expiratory phase. Absent: accessory muscle use, rales, rhonchi, wheezes - Cardiovascular Cardiovascular exam: Present: RRR, +S1, +S2. Absent: diastolic murmur, gallop, rubs, systolic murmur - GI/Abdominal GI/Abdominal exam: Present: normal bowel sounds, soft, no peritoneal signs. Absent: distended, tenderness - Neurological Exam Neurological exam: Present: alert, oriented X3, no focal deficits. Absent: facial droop, speech deficit - Attending Attestation This document has been at least partially created by [employer] recognition technology by Dr. Ross. Errors in grammar, wording or other phrases may exist. If errors are found after the documentation is signed, they will be addressed individually in the addendum section of this document when appropriate.
--- NOTE | 2016-12-29 10:29 | Physician Discharge Referral ---
Home Health/Hosp Referral Info Transfer to: Home Health Provider in Charge Post Discharge: PCP - Diagnosis (1) Acute exacerbation of chronic obstructive pulmonary disease Priority: Primary Status: Acute (2) Community acquired pneumonia Priority: Secondary Status: Acute (3) Tobacco abuse Priority: Secondary Status: Chronic - Respiratory Orders Oxygen / L per min (4) Smoking Cessation: Smoking cessation has been advised. For more information, call the [place] Tobacco Quit Line at 5-589-ZLEP-NOW. - Diet/Nutrition Diet/Nutrition Orders: No Added Salt (LEONIDES), Cardiac - Activity Activity Orders: Up ad mina, Walker - Services Needed Following services are medically necessary services: Nursing, Physical Therapy, Occupational Therapy - Transfer Medications Prescriptions: Amoxicillin/Clavulanate [Augmentin] 875 mg PO BIDWM #20 tablet Doxycycline Hyclate 100 mg PO BID #20 capsule PredniSONE 10 mg PO DAILY 12 Days Home Medications: Albuterol Neb [Proventil Neb] 2.5 mg IH PRN PRN 06/16/15 [History] Albuterol Sulfate [Albuterol Inhaler] 2 puff IH PRN PRN 06/16/15 [History] Chlordiazepoxide [Librium] 10 mg PO BID 06/16/15 [History] Ascorbate Calcium [Vitamin C] 500 mg PO DAILY 12/06/16 [History] Cranberry 500 mg PO DAILY 12/06/16 [History] Diphenoxylate/Atropine [Lomotil 2.5 mg/0.025 mg] 1 tab PO BID 12/06/16 [History] Multivitamin [Multi-Day Vitamins] 1 tab PO DAILY 12/06/16 [History] GuaiFENesin ER [Mucinex] 600 mg PO BID PRN #30 tbbp.12hr 12/08/16 [Rx] Lactose-Reduced Food [Ensure Plus] 1 bottle PO TID #90 can 12/08/16 [Rx] Budesonide/Formoterol 160/4.5 [Symbicort] 2 puff IH BID 12/26/16 [History] Cyanocobalamin (Vitamin B-12) [Vitamin B12] 1,000 mcg PO DAILY 12/26/16 [History ] Amoxicillin/Clavulanate [Augmentin] 875 mg PO BIDWM #20 tablet 12/29/16 [Rx] Doxycycline Hyclate 100 mg PO BID #20 capsule 12/29/16 [Rx] PredniSONE 10 mg PO DAILY 12 Days 12/29/16 [Rx] Allergies/Adverse Reactions: Allergies No Known Allergies Allergy (Verified 12/26/16 16:34) Certification: Further, I certify that my clinical findings support that this patient is homebound (i.e. absences from home require considerable and taxing effort and are for medical reasons or [facility] or infrequently or short duration when for other reasons) because: Homebound Reason: Patient requires assistance of a person or device to safely leave home, Severity of cardiac or pulmonary status limits activity tolerance Attestation: My signature below is to certify that this patient is under my care and that I, or nurse practitioner, or a physician's office assistant working with me, has a face-to -face encounter with this patient.
[2016-12-29] MEDS: Budesonide/Formoterol 160/4.5 MDI IH SCH (10:49)
[2016-12-29 11:51] VITALS: BP 153/90
== END 2016-12-29 16:33 | disposition home health service (06) | DRG 190 ==
LOC: 2ANU 12:56 → EMEROO 12:56 → 2ANU 17:40 → SUATTDRO 19:19
PROVIDERS: ADMIT Internal Medicine; ATTEND Internal Medicine

== ENCOUNTER 2017-01-04 23:03 | Inpatient (IN) ==
[2017-01-04] MEDS ORDERED: Ipratropium/Albuterol Neb 3 ML IH ONE (23:07)
[2017-01-04] MEDS ORDERED: methylPREDNISolone 125 MG/2 ML VIAL IVP ONE (23:07)
[2017-01-04] MEDS ORDERED: Nitroglycerin 0.4 MG TAB.SUBL SL PRN (23:21)
[2017-01-04] MEDS ORDERED: Aspirin 81 MG TAB.CHEW PO ONE (23:28)
--- NOTE | 2017-01-04 23:32 | Emergency Department Note ---
Disposition Clinical Impression: COPD exacerbation Disposition: Admitted As Inpatient SOB HPI - General Chief Complaint: ED Shortness of Breath/Dyspnea Stated Complaint: jil Time Seen by Provider: 01/04/17 23:07 Source: patient Limitations: no limitations Nursing Notes Reviewed: Yes Vital Signs Reviewed: Yes - History of Present Illness Presents to the ER by EMS for evaluation of shortness of breath. Patient is a 4 L oxygen dependent COPD who was recently in the hospital and diagnosed with pneumonia. Patient shortness of breath today acutely worse over the last 24 hours without relief at home. Patient presents today With diffuse wheezing throughout all lung hanna. Intercostal retractions and increased work of breathing. Oxygen 88% on 4 L. Blood pressure 220 systolic. - Related Data Home Medications Medication Instructions Recorded Confirmed Albuterol Neb [Proventil Neb] 2.5 mg IH PRN PRN 06/16/15 12/26/16 Albuterol Sulfate [Albuterol 2 puff IH PRN PRN 06/16/15 12/26/16 Inhaler] Chlordiazepoxide [Librium] 10 mg PO BID 06/16/15 12/26/16 Ascorbate Calcium [Vitamin C] 500 mg PO DAILY 12/06/16 12/26/16 Cranberry 500 mg PO DAILY 12/06/16 12/26/16 Diphenoxylate/Atropine [Lomotil 1 tab PO BID 12/06/16 12/26/16 2.5 mg/0.025 mg] Multivitamin [Multi-Day Vitamins] 1 tab PO DAILY 12/06/16 12/26/16 Budesonide/Formoterol 160/4.5 2 puff IH BID 12/26/16 12/26/16 [Symbicort] Cyanocobalamin (Vitamin B-12) 1,000 mcg PO DAILY 12/26/16 12/26/16 [Vitamin B12] Previous Rx's Medication Instructions Recorded GuaiFENesin ER [Mucinex] 600 mg PO BID PRN #30 tbbp.12hr 12/08/16 Lactose-Reduced Food [Ensure Plus] 1 bottle PO TID #90 can 12/08/16 Amoxicillin/Clavulanate [Augmentin] 875 mg PO BIDWM #20 tablet 12/29/16 Doxycycline Hyclate 100 mg PO BID #20 capsule 12/29/16 PredniSONE 10 mg PO DAILY 12 Days 12/29/16 Allergies Allergy/AdvReac Type Severity Reaction Status Date / Time No Known Allergies Allergy Verified 12/26/16 16:34 All systems ED: reviewed and negative except as stated. Constitutional: Denies: fever, weakness Cardiovascular: Reports: chest pain Respiratory: Reports: cough, dyspnea Gastrointestinal: Denies: abdominal pain, nausea, vomiting, diarrhea Musculoskeletal: Denies: back pain Neurological: Denies: headache Past Medical History - Past Medical History Medical history: Reports: COPD, hypertension, other Surgical history: Reports: no surgical history Psychiatric history: Reports: no psych history - Social History Smoking Status: Current every day smoker Smokeless Tobacco Status: No Alcohol use: Reports: none Drug use: Reports: none Physical Exam - General Limitations: no limitations General appearance: alert, in no apparent distress - Head Head exam: atraumatic, normocephalic - Eye Eye exam: Present: normal appearance, PERRL - ENT ENT exam: normal exam, normal oropharynx - Neck Neck exam: Present: normal inspection - Chest Chest inspection: Present: normal inspection, other (tachypnea) - Respiratory Respiratory exam: Present: respiratory distress, wheezes (severe bilateral) - Cardiovascular Cardiovascular exam: Present: tachycardia - Abdominal Exam Abdominal exam: Present: soft, Non-Tender - Extremities Exam Extremities exam: Present: normal inspection. Absent: pedal edema - Back Exam Back exam: Present: normal inspection - Neurological Exam Neurological exam: Present: alert - Psychiatric Psychiatric exam: Present: anxious Course - Reevaluation(s) Reevaluation #1: Patient improved after initial treatments. Patient complaining of chest pain across the front of his chest that started this morning. Aspirin given. - Consultations Consultation #1: Discussed with Dr. Ware. Patient accepted Vital Signs Temperature 97.6 F 01/04/17 23:03 Pulse Rate 129 01/04/17 23:03 Respiratory Rate 24 01/04/17 23:03 Blood Pressure 235/124 01/04/17 23:03 O2 Sat by Pulse Oximetry 82 L 01/04/17 23:03 Temperature 97.7 F 01/05/17 02:04 Pulse Rate 97 01/05/17 02:04 Respiratory Rate 27 01/05/17 02:04 Blood Pressure 170/88 01/05/17 02:04 O2 Sat by Pulse Oximetry 97 01/05/17 02:04 Oxygen Delivery Oxygen Delivery Bipap Shortness of Breath/Dyspnea - Lab Data Result diagrams: 01/04/17 23:30 01/04/17 23:30 Lab Results 01/04/17 01/04/17 01/04/17 Range/Units 23:30 23:30 23:30 WBC 9.2 (4.3-11.1) K/mcL RBC 4.07 L (4.19-5.50) M/mcL Hgb 12.6 L (12.9-16.9) g/dL Hct 39.3 (37.5-50.1) % MCV 96.6 (83.0-100.0) fL MCH 31.0 (28.0-33.3) pg MCHC 32.1 (31.6-35.5) g/dL RDW 12.4 (11.5-14.5) % Plt Count 252 (140-400) K/mcL MPV 9.4 (9.4-12.4) fL Immature Gran % 0.5 (0-4) % Seg Neutrophils % 88.8 % Lymphocytes % 4.5 % Monocytes % 6.1 % Eosinophils % 0.1 % Basophils % 0.0 % Neutrophils # 8.2 (1.6-8.9) K/mcL Lymphocytes # 0.4 L (0.6-4.6) K/mcL Monocytes # 0.6 (0.0-1.3) K/mcL Eosinophils # 0.0 (0.0-0.6) K/mcL Basophils # 0.0 (0.0-0.2) K/mcL ABG pH (7.32-7.45) pH Units ABG pCO2 (35-45) mmHg ABG pO2 (85-104) mmHg ABG HCO3 (21-27) mEQ/L ABG Total CO2 (20-26) mEq/L ABG O2 Saturation (95-98) % ABG Base Excess (-2.0 to 3.0) mEq/L Blood Gas Modality Inspired O2 % Sodium 138 (136-145) mEq/L Potassium 3.7 (3.5-4.5) mEq/L Chloride 94 L (98-109) mEq/L Carbon Dioxide 34 H (19-29) mEq/L BUN 25 (8-26) mg/dL Creatinine 1.00 (0.72-1.25) mg/dL Est GFR ( Amer) > 60 (> 60) Est GFR (Non-Af Amer) > 60 (> 60) BUN/Creatinine Ratio 25 (6-26) Glucose 114 H (70-99) mg/dL Calculated Osmolality 291 (280-300) Calcium 9.4 (8.6-10.8) mg/dL Magnesium 2.1 (1.6-2.6) mg/dL Troponin I 0.02 (0-0.03) ng/mL B-Natriuretic Peptide (0-100) pg/mL 01/04/17 01/04/17 Range/Units 23:30 23:33 WBC (4.3-11.1) K/mcL RBC (4.19-5.50) M/mcL Hgb (12.9-16.9) g/dL Hct (37.5-50.1) % MCV (83.0-100.0) fL MCH (28.0-33.3) pg MCHC (31.6-35.5) g/dL RDW (11.5-14.5) % Plt Count (140-400) K/mcL MPV (9.4-12.4) fL Immature Gran % (0-4) % Seg Neutrophils % % Lymphocytes % % Monocytes % % Eosinophils % % Basophils % % Neutrophils # (1.6-8.9) K/mcL Lymphocytes # (0.6-4.6) K/mcL Monocytes # (0.0-1.3) K/mcL Eosinophils # (0.0-0.6) K/mcL Basophils # (0.0-0.2) K/mcL ABG pH 7.36 (7.32-7.45) pH Units ABG pCO2 74 H* (35-45) mmHg ABG pO2 38 L* (85-104) mmHg ABG HCO3 41.8 H (21-27) mEQ/L ABG Total CO2 44.1 H (20-26) mEq/L ABG O2 Saturation 70 L (95-98) % ABG Base Excess 13.5 H (-2.0 to 3.0) mEq/L Blood Gas Modality BIPAP Inspired O2 40 % Sodium (136-145) mEq/L Potassium (3.5-4.5) mEq/L Chloride (98-109) mEq/L Carbon Dioxide (19-29) mEq/L BUN (8-26) mg/dL Creatinine (0.72-1.25) mg/dL Est GFR ( Amer) (> 60) Est GFR (Non-Af Amer) (> 60) BUN/Creatinine Ratio (6-26) Glucose (70-99) mg/dL Calculated Osmolality (280-300) Calcium (8.6-10.8) mg/dL Magnesium (1.6-2.6) mg/dL Troponin I (0-0.03) ng/mL B-Natriuretic Peptide 107 H (0-100) pg/mL Attestation Statement - Attestation Attestation: For this encounter, I have reviewed the resident, KIER OPERATOR, or PA documentation, treatment plan, and medical decision making; and I have had face to face time with this patient. 81-year-old male brought in by EMS for difficulty in breathing. Patient was recently admitted to the hospital and diagnosed with a pneumonia. Patient states his breathing acutely worsened over the past 24 hours. Patient was satting 82% on 4 L nasal cannula in the emergency department. Patient was given duo nebs and placed on BiPAP in the emergency department. His initial BP was also significantly elevated and he was given nitroglycerin for chest pressure. With treatment of his respiratory distress and with the nitroglycerin and the patient's blood pressure improved significantly and he felt significantly improved. Troponin negative. BNP within normal limits. Patient agrees with the plan for admission to the hospital for continuation of care of likely COPD exacerbation.
[2017-01-04 23:36] LABS: Eosinophils % 0.1 %; Hematocrit 39.3 % (37.5-50.1); Hemoglobin 12.6 g/dL (12.9-16.9); Immature Granulocytes % 0.5 % (0-4); Lymphocytes # 0.4 K/mcL (0.6-4.6); Lymphocytes % 4.5 %; Mean Corpuscular HGB Conc 32.1 g/dL (31.6-35.5); Mean Corpuscular Volume 96.6 fL (83.0-100.0); Mean Platelet Volume 9.4 fL (9.4-12.4); Monocytes # 0.6 K/mcL (0.0-1.3); Monocytes % 6.1 %; Neutrophils # 8.2 K/mcL (1.6-8.9); Platelet Count 252 K/mcL (140-400); Red Blood Count 4.07 M/mcL (4.19-5.50); Red Cell Distribution Width 12.4 % (11.5-14.5); Segmented Neutrophils % 88.8 %
[2017-01-04 23:41] LABS: ABG Base Excess 13.5 mEq/L (-2.0 to 3.0); ABG HCO3 41.8 mEQ/L (21-27); ABG Oxygen Saturation 70 % (95-98); ABG PH 7.36 pH Units (7.32-7.45); ABG TCO2 44.1 mEq/L (20-26)
[2017-01-04 23:42] LABS: Blood Gas FiO2 40 %
[2017-01-04 23:43] LABS: ABG PCO2 74 mmHg (35-45); ABG PO2 38 mmHg (85-104)
[2017-01-04 23:48] LABS: BUN/Creatinine Ratio 25 (6-26); Blood Urea Nitrogen 25 mg/dL (8-26); Calcium 9.4 mg/dL (8.6-10.8); Carbon Dioxide 34 mEq/L (19-29); Chloride 94 mEq/L (98-109); Glucose 114 mg/dL (70-99); Osmolality,Calculated 291 (280-300); Potassium 3.7 mEq/L (3.5-4.5); Sodium 138 mEq/L (136-145); eGFR For African Americans > 60 (> 60); eGFR For Non-African Americans > 60 (> 60)
[2017-01-04 23:54] LABS: Magnesium 2.1 mg/dL (1.6-2.6)
--- NOTE | 2017-01-05 02:39 | Internal Med History&Physical ---
<ShanPraneeth - Last Filed: 01/05/17 03:00> Date of Encounter: 01/05/17 Time of Encounter: 02:34 Assessment and Plan (1) Acute exacerbation of chronic obstructive pulmonary disease Current visit: No Status: Acute Likely exacerbation of his COPD given sputum production and increased oxygen demands Will start patient on IV steroids and antibiotics Scheduled breathing treatments and PRN nebulizers He has a history of known severe COPD and will need close outpatient follow-up Currently saturating well on BiPAP, may qualify for nocturnal BiPAP prior to discharge (2) Acute and chronic respiratory failure with hypoxia Current visit: No Status: Acute According to the record, he presented with saturation in the 80s despite being on home dose of 4 L oxygen He is currently on BiPAP and saturating well in the mid 90s Initial ABG did show hypercapnic respiratory failure, will repeat ABG in the morning Patient also had bilateral lower extremity edema concerning for heart failure; will obtain echocardiogram and start on low dose IV Lasix (3) Hypertension Current visit: No Status: Chronic Patient claims to not have any history of high blood pressure and does not take any medications for it He did present with systolic above 220 and was started on nitroglycerin drip, which we will continue overnight Will likely need to be transitioned to oral medication prior to discharge, recommend HCTZ Qualifiers: Hypertension type: essential hypertension Qualified Code(s): I10 - Essential (primary) hypertension (4) DVT prophylaxis Current visit: No Status: Acute [facility] Internal Medicine - H&P: HPI Chief complaint: Shortness of breath Admitted From: Home Plans for Post Hospital Care: Home History of present illness: Mr. Becker is a 81 year old male who presents to the emergency department with shortness of breath that has been progressive over the 24 hrs. He has history of COPD he is on 4 L of oxygen at home he states that he is taking his breathing treatments as directed. He also complains of white sputum production but denies any fevers, chills, nausea, vomiting, diarrhea. He lives at home and is able to take care of himself independently at his baseline but over the past day has been severely short of breath and is difficultly during inhalation. He does have history of multiple hospital admissions for COPD exacerbation including most recently last week. He was treated for community acquired pneumonia and was given Augmentin and doxycycline, which he claims he was compliant with. While in the emergency department, he experienced chest pain and was hypertensive with systolic above 220 and was started on nitroglycerin. Currently, patient has no complaints of chest pain and states that his breathing is significantly better since arriving at the hospital after he was put on BiPAP, given steroids and additional breathing treatment. Past Med Surg Social Fam HX - Past Medical History Medical history: COPD, hypertension, other Psychiatric history: no psych history - Past Surgical History Surgical History: no surgical history - Social History Smoking Status: Current every day smoker Smokeless Tobacco Status: No Alcohol use: none Drug use: none - Family History Daughter Adopted: [place]: Lisbeth Clay Age: 52 Family Member Ethnicity: Non- Living Status: Still Living Hx Family Cardiac Disorders: No Hx Family Respiratory Disorders: No Hx Family Cancer: No Hx Family GI Disorders: No Hx Family Genitourinary Disorders: No Hx Family Endocrine Disorder: No Hx Family Musculoskeletal Disorders: No Hx Family Neuromuscular Disorders: No Hx Family Neurologic Disorders: No Hx Family HEENT Disorders: No Hx Family Autoimmune Disorders: No Hx Family Reproductive Disorders: No Hx Family Psychosocial Disorders: No Hx Family Medical Disorders: No Brother Living Status: Still Living Hx Family Endocrine Disorder: Yes (Diabetes) Internal Medicine - H&P: Meds Albuterol Neb [Proventil Neb] 2.5 mg IH PRN PRN 06/16/15 [History] Albuterol Sulfate [Albuterol Inhaler] 2 puff IH PRN PRN 06/16/15 [History] Chlordiazepoxide [Librium] 10 mg PO BID 06/16/15 [History] Ascorbate Calcium [Vitamin C] 500 mg PO DAILY 12/06/16 [History] Cranberry 500 mg PO DAILY 12/06/16 [History] Diphenoxylate/Atropine [Lomotil 2.5 mg/0.025 mg] 1 tab PO BID 12/06/16 [History] Multivitamin [Multi-Day Vitamins] 1 tab PO DAILY 12/06/16 [History] GuaiFENesin ER [Mucinex] 600 mg PO BID PRN #30 tbbp.12hr 12/08/16 [Rx] Lactose-Reduced Food [Ensure Plus] 1 bottle PO TID #90 can 12/08/16 [Rx] Budesonide/Formoterol 160/4.5 [Symbicort] 2 puff IH BID 12/26/16 [History] Cyanocobalamin (Vitamin B-12) [Vitamin B12] 1,000 mcg PO DAILY 12/26/16 [History ] Amoxicillin/Clavulanate [Augmentin] 875 mg PO BIDWM #20 tablet 12/29/16 [Rx] Doxycycline Hyclate 100 mg PO BID #20 capsule 12/29/16 [Rx] PredniSONE 10 mg PO DAILY 12 Days 12/29/16 [Rx] Allergies No Known Allergies Allergy (Verified 12/26/16 16:34) All Systems PM: A 10-system review of systems was performed and is negative for pertinent findings except as documented above in the HPI. - Constitutional Constitutional: weakness, no chills, no fever(s), no night sweats - EENT Eyes: no change in vision, no discharge, no pain, no photophobia Ears: no ear discharge, no ear pain, no tinnitus Nose, mouth and throat: no dysphagia, no nasal discharge, no neck pain, no sore throat - Cardiovascular Cardiovascular ROS IM: chest pain, no diaphoresis, no dyspnea, no lightheadedness, no palpitations, no syncope - Respiratory Respiratory: cough, dyspnea, dyspnea on exertion, wheezing, change in phlegm color, no excessive phlegm production - Gastrointestinal Gastrointestinal: no abdominal pain, no diarrhea, no hematemesis, no hematochezia, no melena, no nausea, no vomiting - Musculoskeletal Musculoskeletal ROS IM: no numbness, no tingling - Integumentary Integumentary IM: no rash, no unusual bruising - Neurological Neurological ROS: no confusion, no convulsions, no focal weakness, no numbness, no tingling, no tremor(s) - Hematologic/Lymphatic Hematologic/Lymphatic: no easy bruising - Constitutional Vitals: Temp Pulse Resp BP Pulse Ox 97.7 F 97 27 170/88 97 01/05/17 02:04 01/05/17 02:04 01/05/17 02:04 01/05/17 02:04 01/05/17 02:04 General appearance: Present: cooperative, A&O X 3, pleasant, no acute distress, answers questions appropriately - Head Head exam: Present: atraumatic, normocephalic - Eye Eye exam: Present: PERRL, conjuntiva pink, sclera anicteric - Neck Neck exam general surgery: Present: supple, trachea midline. Absent: lymphadenopathy - Respiratory Respiratory exam: Present: wheezes. Absent: accessory muscle use, rales, rhonchi - Cardiovascular Cardiovascular exam: Present: RRR, +S1, +S2. Absent: diastolic murmur, gallop, rubs, systolic murmur - GI/Abdominal GI/Abdominal exam: Present: normal bowel sounds, soft, no peritoneal signs. Absent: distended, tenderness - Extremities Exam Extremities exam: Present: pedal edema (2+ pitting), warm, radial pulses palpable and symetrical. Absent: calf tenderness, cyanotic - Neurological Exam Neurological exam: Present: alert, oriented X3, no focal deficits. Absent: facial droop, speech deficit - Skin Skin exam: Present: dry, intact Internal Med - H&P Results - Labs CBC & Chem 7: 01/04/17 23:30 01/04/17 23:30 <Rodrigo Hassan - Last Filed: 01/05/17 06:47> Date of Encounter: 01/05/17 Internal Medicine - H&P: HPI History of present illness: Mr. Becker is a 81 year old male All Systems PM: A 10-system review of systems was performed and is negative for pertinent findings except as documented above in the HPI. - Constitutional Vitals: Temp Pulse Resp BP Pulse Ox 97.7 F 97 26 170/88 91 L 01/05/17 02:04 01/05/17 02:04 01/05/17 06:00 01/05/17 02:04 01/05/17 06:02 Internal Med - H&P Results - Labs CBC & Chem 7: 01/04/17 23:30 01/04/17 23:30 - Attending Attestation I examined this patient and my medical decision-making was reviewed with the Resident Physician, Dr. Torrez. I agree with the documented findings, disposition and treatment plan as described except to the extent set forth below. Patient appears to be comfortable on BiPAP. Lung exam reveals diminished breath sounds bilaterally with expiratory wheezes. Abdomen is soft. Extremities with 2+ pitting edema. We will give 1 dose of Lasix now and start 20 mg IV daily for treatment of peripheral edema secondary to diastolic heart failure. Will check an echocardiogram. We will treat the patient for COPD with BiPAP IV antibiotics IV steroids and inhaled bronchodilators. We will consult palliative care service for end-of-life discussion given advanced COPD.
[2017-01-05] MEDS ORDERED: Ondansetron ODT 4 MG TAB.RAPDIS SL PRN (02:56)
[2017-01-05] MEDS ORDERED: Acetaminophen 325 MG TABLET PO PRN (02:56)
[2017-01-05] MEDS ORDERED: Naloxone 0.4 MG/ML INJ IVP PRN (02:56)
[2017-01-05] MEDS ORDERED: Albuterol 2.5 MG/3 ML NEBULIZER IH PRN (03:00)
[2017-01-05] MEDS ORDERED: Levofloxacin 500 MG/100 ML 500 MG/100 ML BAG IVPB SCH (03:00)
[2017-01-05] MEDS: Ipratropium/Albuterol Neb 3 ML IH SCH ×6 (04:23→23:52)
[2017-01-05] MEDS ORDERED: Furosemide 20 MG/2 ML VIAL IVP ONE (04:48)
[2017-01-05] MEDS ORDERED: 0.9 % Sodium Chloride 500 ML ONE (04:56)
[2017-01-05] MEDS: Nitroglycerin 25 MG/250 ML INFUS..BTL IVC SCH (05:10)
[2017-01-05] MEDS: *HR* Enoxaparin 40 MG/0.4 ML SYRINGE SQ SCH (05:11)
[2017-01-05 08:34] LABS: ABG Base Excess 14.1 mEq/L (-2.0 to 3.0); ABG HCO3 41.2 mEQ/L (21-27); ABG Oxygen Saturation 78 % (95-98); ABG PCO2 65 mmHg (35-45); ABG PH 7.41 pH Units (7.32-7.45); ABG TCO2 43.2 mEq/L (20-26)
[2017-01-05 08:35] LABS: Blood Gas FiO2 36 %; Blood Gas Liter Flow 4 L/MIN
[2017-01-05 08:36] LABS: ABG PO2 42 mmHg (85-104)
[2017-01-05] MEDS: methylPREDNISolone 125 MG/2 ML VIAL IVP SCH ×2 (08:56→17:48)
[2017-01-05] MEDS: Furosemide 20 MG/2 ML VIAL IVP SCH (08:56)
--- NOTE | 2017-01-05 11:17 | Palliative - Consult Note ---
Date of Encounter: 01/05/17 Time of Encounter: 11:15 - Assessment and Plan (1) Dyspnea Current Visit: No Status: Acute Assessment and plan: Continues with treatment with IV atb, steroids, diuretics, bronchodilators, and oxygen and bipap support. Will follow closely. Currently on bipap and does not tolerate without this for a long period of time. Qualifiers: Dyspnea type: unspecified Qualified Code(s): R06.00 - Dyspnea, unspecified (2) Counseling regarding advanced care planning and goals of care Current Visit: No Status: Acute Assessment and plan: Patient currently on bipap and is having dyspnea when speaking - so interaction with him was limited during this visit. Daughter, Lisbeth, JENNIFER and Selam at bedside. Lisbeth states that we have advanced directives on file here - I did not see but will search for this again. They do not remember pt having DNR. 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 Briefly discussed code status and intubation, pt desires to consider this at this point. He did appear in moderate respiratory distress at the time of my visit and this probably limited him participating. Discussed his recent hospital visits, and family states "he was only here 2 days last time and was discharged too early". Patient has home oxygen and nebs in place. He refused any home health care and his primary physician f/u was scheduled for today. Will f/u in am with code discussion and hopefully he will be less short of breath and able to speak his wishes. (3) COPD exacerbation Current Visit: Yes Status: Acute (4) Acute and chronic respiratory failure with hypoxia Current Visit: No Status: Acute Palliative-CN HPI - Data of Consult Consult date: 01/05/17 Requesting Physician: Kasandra King Primary Care Provider: Radha Hicks CNP - Consult Narrative History of present illness: Mr. Becker is a 81 year old male CC: Kasandra King Past Med Surg Social Fam HX - Past Medical History Medical history: COPD, hypertension, other Psychiatric history: no psych history - Past Surgical History Surgical History: no surgical history - Social History Smoking Status: Current every day smoker Smokeless Tobacco Status: No Alcohol use: none Drug use: none - Family History Daughter Adopted: [place]: Lisbeth Clay Age: 52 Family Member Ethnicity: Non- Living Status: Still Living Hx Family Cardiac Disorders: No Hx Family Respiratory Disorders: No Hx Family Cancer: No Hx Family GI Disorders: No Hx Family Genitourinary Disorders: No Hx Family Endocrine Disorder: No Hx Family Musculoskeletal Disorders: No Hx Family Neuromuscular Disorders: No Hx Family Neurologic Disorders: No Hx Family HEENT Disorders: No Hx Family Autoimmune Disorders: No Hx Family Reproductive Disorders: No Hx Family Psychosocial Disorders: No Hx Family Medical Disorders: No Brother Living Status: Still Living Hx Family Endocrine Disorder: Yes (Diabetes) Medications and Allergies Albuterol Neb [Proventil Neb] 2.5 mg IH PRN PRN 06/16/15 [History] Albuterol Sulfate [Albuterol Inhaler] 2 puff IH PRN PRN 06/16/15 [History] Chlordiazepoxide [Librium] 10 mg PO BID 06/16/15 [History] Ascorbate Calcium [Vitamin C] 500 mg PO DAILY 12/06/16 [History] Cranberry 500 mg PO DAILY 12/06/16 [History] Diphenoxylate/Atropine [Lomotil 2.5 mg/0.025 mg] 1 tab PO BID 12/06/16 [History] Multivitamin [Multi-Day Vitamins] 1 tab PO DAILY 12/06/16 [History] GuaiFENesin ER [Mucinex] 600 mg PO BID PRN #30 tbbp.12hr 12/08/16 [Rx] Lactose-Reduced Food [Ensure Plus] 1 bottle PO TID #90 can 12/08/16 [Rx] Budesonide/Formoterol 160/4.5 [Symbicort] 2 puff IH BID 12/26/16 [History] Cyanocobalamin (Vitamin B-12) [Vitamin B12] 1,000 mcg PO DAILY 12/26/16 [History ] Amoxicillin/Clavulanate [Augmentin] 875 mg PO BIDWM #20 tablet 12/29/16 [Rx] Doxycycline Hyclate 100 mg PO BID #20 capsule 12/29/16 [Rx] PredniSONE 10 mg PO DAILY 12 Days 12/29/16 [Rx] Allergies No Known Allergies Allergy (Verified 12/26/16 16:34) All systems: reviewed and no additional remarkable complaints except as stated ( Dyspnea at rest, productive cough, Generalized weakness) Palliative Care-Exam - Constitutional Vitals: Temp Pulse Resp BP Pulse Ox 98.1 F 71 18 191/93 95 01/05/17 11:07 01/05/17 11:07 01/05/17 11:07 01/05/17 11:07 01/05/17 11:07 General appearance: Present: mild distress - Head Head Exam: Present: normal inspection, normocephalic - Respiratory Additional comments: Course wheezes throughout all lung hanna. Currently on bipap - Cardiovascular Cardiovascular exam: Present: +S1, +S2 - GI/Abdominal Exam GI/Abdominal exam: Present: normal bowel sounds - Additional comments: Voids per urinal - Extremities Exam Extremities exam: Present: normal capillary refill, normal inspection - Neurological Exam Neurological exam: Present: alert, oriented X3, strengths equal and symetr throughout - Skin Skin exam: Present: dry, pallor, warm Internal Medicine - CN: Reslt - Labs CBC & Chem 7: 01/04/17 23:30 01/04/17 23:30 - ABG Interpretation ABG results: ABG ABG pH 7.41 pH Units (7.32-7.45) 01/05/17 08:20 ABG pCO2 65 mmHg (35-45) H 01/05/17 08:20 ABG pO2 42 mmHg (85-104) L* 01/05/17 08:20 ABG O2 Saturation 78 % (95-98) L 01/05/17 08:20 Consult Discharge Plan - Plan Referrals: Radha Hicks, JAVASCRIPT DEVELOPER [Primary Care Provider] - Palliative Quality Palliative Quality: Screen for Code Status: Yes, Screen for Goals of Care: Yes, Screen for Pain: Yes, If Pain Regimen Started, Initiate Bowel Regimen: NA, Screen for Nausea/Vomitting: Yes Code Status: 01/05/17 02:56 Resuscitation Status: Active [RES] Routine Comment: Resuscitation Status: Full Code
[2017-01-05] MEDS: Budesonide/Formoterol 160/4.5 MDI IH SCH ×2 (11:38→20:13)
--- NOTE | 2017-01-05 15:51 | ECHO - Doppler Report ---
Echocardiogram Name: Alonso Becker Date of Study: 01/05/2017 Date: 1935 Ht: 65.0 in Medical Record#: [id number] Age: 81 Wt: 97.0 lb Gender: Male BSA: 1.45 Order #: [id number] Location: [facility] Room #: 2A44 Reading Physician: Yumiko Fabian DO Supervisor Edging: Efra Elizondo RN Ordering Physician: Praneeth Torrez DO Primary Physician: Radha Hicks CNP Indications: Edema Impressions: Sinus rhythm and sinus tachycardia. LVEF 65-70%. Normal LV chamber size, wall thickness and function. Mild left ventricular diastolic dysfunction. Normal right ventricular size and function. Mild to moderate tricuspid regurgitation. Moderate pulmonary hypertension. There is a small circumferential pericardial effusion that is moderate in size near the apex. There does not appear to be echo evidence for tamponade. Blood pressure is hypertensive. IVC collapses. No RV collapse. Left Ventricular Wall Motion: Rest Echo Findings All wall segments showed normal motion. Findings: Study Quality * Technically adequate exam. ECG Findings * Sinus tachycardia, sinus rhythm. Left Ventricle * LVEF 65-70%. * Normal LV chamber size, wall thickness and function. * Mild left ventricular diastolic dysfunction. Left Atrium * Normal left atrial size. Mitral Valve * Normal mitral valve structure. * No mitral stenosis. * No mitral regurgitation. Aortic Valve * No aortic regurgitation. * Trileaflet aortic valve. * Normal aortic valve structure. * No aortic stenosis. Tricuspid Valve * Mild-moderate tricuspid regurgitation. * Normal tricuspid valve structure. * Estimated RA pressure is 3 mmHg. * Estimated RVSP is 51 mmHg. * Moderate pulmonary hypertension. Pulmonic Valve * Pulmonic valve is not well visualized. * No pulmonic stenosis. * No pulmonic regurgitation. Pulmonary Artery * Pulmonary artery not well visualized. Right Ventricle * Normal right ventricular structure and function. Right Atrium * RA appears normal in size but is not fully visualized. IVC * Normal IVC dimensions and inspiratory collapse. Pericardium * There is a small circumferential pericardial effusion that is moderate in size near the apex. No evidence for tamponade. Hypertensive BP. IVC collapses. No RV collapse. Mitral inflow suboptimal. Aorta * Not well visualized. Interatrial Septum * No evidence of PFO by color Doppler. History Hypertension History of Smoking Years 54 Packs 1 03/28/2013 a Previous Echo was performed. Measurements: BP: 158/ 80 2D Normal Values IVSd: 1.00 cm 0.6 - 1.0 cm LVIDd: 3.70 cm 3.7 - 5.6 cm LVPWd: 1.20 cm 0.6 - 1.1 cm LVIDs: 2.80 cm 1.5 - 3.6 cm LA: 2.80 cm 2.0 - 4.0cm %FS: 24.30 cm >25 % LVOT Diam: 2.00 cm LA volume: 20 Mitral Valve Peak E:.64 m/sec Peak A:.95 m/sec E/A Ratio:0.7 Peak E' Lat Jamey:7.8 cm/s Peak E' Med Jamey:5.95 cm/s E/E' Lat Ratio:8.2 E/E' Med Ratio:10.8 Tricuspid Valve TV Regurg Peak Grad: 48.00mmHg TV Regurg Peak Jamey: 3.45m/sec Updated by Yumiko Fabian on 01/05/2017 3:41:21 PM electronically signed on 01/05/2017 3:46:13 PM with status of Final Wall Motion Tineo: 1=Normal, 2=Hypokinesis, 3=Akinesis, 4=Dyskinesis, 5=Aneurysmal, 6=Hyperkinetic, X=Not Visualized (Blank)=Missing
--- NOTE | 2017-01-05 17:21 | Electrocardiograph Report ---
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
[2017-01-05] MEDS: Nicotine 21 MG PATCH.TD24 TD SCH (17:48)
[2017-01-06] MEDS: methylPREDNISolone 125 MG/2 ML VIAL IVP SCH ×2 (02:13→09:24)
[2017-01-06] MEDS: Ipratropium/Albuterol Neb 3 ML IH SCH ×6 (04:48→23:26)
[2017-01-06] MEDS: *HR* Enoxaparin 40 MG/0.4 ML SYRINGE SQ SCH (05:54)
[2017-01-06 06:13] LABS: Hematocrit 34.4 % (37.5-50.1); Immature Granulocytes % 0.9 % (0-4); Lymphocytes # 0.2 K/mcL (0.6-4.6); Mean Corpuscular Hemoglobin 30.6 pg (28.0-33.3); Mean Corpuscular Volume 95.6 fL (83.0-100.0); Monocytes # 0.5 K/mcL (0.0-1.3); Monocytes % 6.9 %; Neutrophils # 5.9 K/mcL (1.6-8.9); Platelet Count 239 K/mcL (140-400); Red Cell Distribution Width 12.6 % (11.5-14.5); Segmented Neutrophils % 89.2 %
[2017-01-06 06:27] LABS: BUN/Creatinine Ratio 31 (6-26); Blood Urea Nitrogen 27 mg/dL (8-26); Calcium 9.1 mg/dL (8.6-10.8); Carbon Dioxide 35 mEq/L (19-29); Chloride 91 mEq/L (98-109); Glucose 132 mg/dL (70-99); Magnesium 1.7 mg/dL (1.6-2.6); Osmolality,Calculated 289 (280-300); Sodium 136 mEq/L (136-145); eGFR For African Americans > 60 (> 60); eGFR For Non-African Americans > 60 (> 60)
[2017-01-06] MEDS: Nitroglycerin 25 MG/250 ML INFUS..BTL IVC SCH (07:39)
[2017-01-06] MEDS: Nicotine 21 MG PATCH.TD24 TD SCH (09:23)
[2017-01-06] MEDS: Furosemide 20 MG/2 ML VIAL IVP SCH (09:24)
[2017-01-06] MEDS ORDERED: 0.9 % Sodium Chloride 250 ML ONE (09:34)
[2017-01-06] MEDS ORDERED: Morphine Oral CONC 5 MG/0.25 ML ORAL.SYG PO PRN (10:41)
--- NOTE | 2017-01-06 10:43 | Palliative Progress Note ---
Date of Encounter: 01/06/17 Time of Encounter: 10:15 - Assessment and plan (1) Dyspnea Current Visit: No Status: Acute Assessment and plan: Continues with Diuretics, atb, steroids, bronchodilators and oxygen support. Was able to come off bipap yesterday. Patient decided he would not want intubation, will start low dose Roxanol SL in addition to assist with air hunger. Qualifiers: Dyspnea type: unspecified Qualified Code(s): R06.00 - Dyspnea, unspecified (2) Counseling regarding advanced care planning and goals of care Current Visit: No Status: Acute Assessment and plan: Long discussion with pt and daughter, Romeo re: goals of care and code status. Also discussed current clinical situation and trajectory of COPD. Patient decided he did not want resuscitation and does not desire to be intubated if in respiratory distress or failure. Code status change to DNR/DNI. He does qualify for hospice care r/t end stage COPD and discussed this in detail as well. Family wishes to discuss with other children and speak more with the pt prior to decision. Will f/u. If he does not want hospice at this time, he would like home health, and hospital bed, and may need qualifying study for bipap. If decides to proceed with hospice, they will provide the equipment. Will f/u later today. (3) COPD exacerbation Current Visit: Yes Status: Acute (4) Acute and chronic respiratory failure with hypoxia Current Visit: No Status: Acute - Time Spent With Patient Total time spent is greater than 50% in coordination of care (as documented) at patient's floor/unit and/or counseling patient: 25 - 35 minutes - Subjective Interval history: Patient awake and alert - off bipap and tolerated 4 l NC at this time. Daughter Romeo at bedside. Denies pain or discomfort. States breathing better. Ate well - Constitutional Vitals: Abnormal lab results RBC 3.60 M/mcL (4.19-5.50) L 01/06/17 05:47 Hgb 11.0 g/dL (12.9-16.9) L D 01/06/17 05:47 Hct 34.4 % (37.5-50.1) L 01/06/17 05:47 Lymphocytes # 0.2 K/mcL (0.6-4.6) L 01/06/17 05:47 ABG pCO2 65 mmHg (35-45) H 01/05/17 08:20 ABG pO2 42 mmHg (85-104) L* 01/05/17 08:20 ABG HCO3 41.2 mEQ/L (21-27) H 01/05/17 08:20 ABG Total CO2 43.2 mEq/L (20-26) H 01/05/17 08:20 ABG O2 Saturation 78 % (95-98) L 01/05/17 08:20 ABG Base Excess 14.1 mEq/L (-2.0 to 3.0) H 01/05/17 08:20 Chloride 91 mEq/L (98-109) L 01/06/17 05:47 Carbon Dioxide 35 mEq/L (19-29) H 01/06/17 05:47 BUN 27 mg/dL (8-26) H 01/06/17 05:47 BUN/Creatinine Ratio 31 (6-26) H 01/06/17 05:47 Glucose 132 mg/dL (70-99) H 01/06/17 05:47 B-Natriuretic Peptide 107 pg/mL (0-100) H 01/04/17 23:30 General appearance: Present: no acute distress - Respiratory Additional comments: Course expiratory wheezes throughout, BS diminished. - Cardiovascular Cardiovascular exam: Present: +S1, +S2 - GI/Abdominal GI/Abdominal exam: Present: normal bowel sounds, soft - Extremities Exam Extremities exam: Present: normal capillary refill, normal inspection Additional comments: 1+ bilateral lower extremity edema - Neurological Exam Neurological exam: Present: alert, oriented X3, strengths equal and symetr throughout - Skin Skin exam: Present: dry, pallor, warm Palliative Quality Palliative Quality: Screen for Code Status: Yes, Screen for Goals of Care: Yes, Screen for Pain: Yes, If Pain Regimen Started, Initiate Bowel Regimen: NA, Screen for Nausea/Vomitting: Yes Code Status: 01/05/17 02:56 Resuscitation Status: Active [RES] Routine Comment: Resuscitation Status: Full Code - Labs CBC & Chem 7: 01/06/17 05:47 01/06/17 05:47 Labs: Laboratory Results - last 24 hr 01/06/17 01/06/17 05:47 05:47 WBC 6.6 RBC 3.60 L Hgb 11.0 L D Hct 34.4 L MCV 95.6 MCH 30.6 MCHC 32.0 RDW 12.6 Plt Count 239 MPV 10.0 Immature Gran % 0.9 Seg Neutrophils % 89.2 Lymphocytes % 3.0 Monocytes % 6.9 Eosinophils % 0.0 Basophils % 0.0 Neutrophils # 5.9 Lymphocytes # 0.2 L Monocytes # 0.5 Eosinophils # 0.0 Basophils # 0.0 Sodium 136 Potassium 4.0 Chloride 91 L Carbon Dioxide 35 H BUN 27 H Creatinine 0.88 Est GFR ( Amer) > 60 Est GFR (Non-Af Amer) > 60 BUN/Creatinine Ratio 31 H Glucose 132 H Calculated Osmolality 289 Calcium 9.1 Magnesium 1.7 - ABG Interpretation ABG results: ABG ABG pH 7.41 pH Units (7.32-7.45) 01/05/17 08:20 ABG pCO2 65 mmHg (35-45) H 01/05/17 08:20 ABG pO2 42 mmHg (85-104) L* 01/05/17 08:20 ABG O2 Saturation 78 % (95-98) L 01/05/17 08:20 Consult Discharge Plan - Plan Referrals: Radha Hicks, AUDIT CLERK [Primary Care Provider] - 01/11/17 1:45 pm (web request sent on 01/05/17)
--- NOTE | 2017-01-06 15:05 | Internal Med Progress Note ---
Date of Encounter: 01/06/17 Time of Encounter: 14:30 - Assessment and plan (1) Acute and chronic respiratory failure with hypoxia Current Visit: No Status: Acute Assessment and plan: Patient has history of advanced COPD, oxygen dependent at 4 L nasal cannula. Patient completed a full course of oral antibiotics before this admission. Chest x-ray showed no acute cardiopulmonary abnormality, near complete resolution of previously present bibasilar pulmonary opacities, emphysema with chronic interstitial fibrotic changes. Patient required BiPAP on admission and tolerated it for 12 hours. Currently on 5 L of oxygen via nasal time. Decrease IV Solu-Medrol to 40 mg twice a day. DuoNeb every 4. (2) Advanced COPD Current Visit: Yes Status: Acute Assessment and plan: This is patient's fourth admission to our hospital secondary to acute respiratory failure from advanced COPD. patient still smokes cigarettes and is not willing to quit. palliative service was consulted to discuss goals of care , family and patient agreed with hospice at home. Appreciate palliative service input. (3) Acute exacerbation of chronic obstructive airways disease Current Visit: Yes Status: Acute Assessment and plan: Plan as above. (4) Diastolic heart failure Current Visit: Yes Status: Acute Assessment and plan: Compensated. Will switch to oral furosemide now that patient is off BiPAP Qualifiers: Heart failure chronicity: chronic Qualified Code(s): I50.32 - Chronic diastolic (congestive) heart failure (5) Hypertensive urgency Current Visit: Yes Status: Acute Assessment and plan: In the ED, patient's BP was 220. He was started on nitroglycerin drip. Patient now is off BiPAP and tolerating oral medications. I will start amlodipine and stop drip (6) Anemia Current Visit: No Status: Chronic Assessment and plan: Chronic anemia due to chronic disease. Qualifiers: Anemia type: unspecified type Qualified Code(s): D64.9 - Anemia, unspecified (7) Severe protein-calorie malnutrition Current Visit: Yes Status: Chronic Assessment and plan: Appreciate nutrition input. (8) Tobacco abuse Current Visit: No Status: Chronic Assessment and plan: Nicotine patch. Patient is not willing to quit. (9) Counseling regarding advanced care planning and goals of care Current Visit: Yes Status: Acute Assessment and plan: I spoke with patient and family members including his , and his 2 daughters. I explained to them his clinical diagnoses, severity of his COPD, very poor prognosis and treatment options. They verbalized understanding and agreed with [facility]. - Subjective Interval history: Patient is off BiPAP. He is tolerating nasal cannula well. - Constitutional Vitals: Temp Pulse Resp BP Pulse Ox 98.1 F 110 18 180/95 95 01/06/17 11:22 01/06/17 11:22 01/06/17 11:22 01/06/17 11:22 01/06/17 11:22 General appearance: Present: cachectic, cooperative, mild distress, A&O X 3, pleasant, answers questions appropriately Exam: Speaking short sentences. Patient uses accessory muscles when talking. - Eye Eye exam: Present: PERRL, sclera anicteric - Neck Neck exam general surgery: Present: supple, trachea midline. Absent: lymphadenopathy - Respiratory Respiratory exam: Present: decreased breath sounds - Cardiovascular Cardiovascular exam: Present: tachycardia - GI/Abdominal GI/Abdominal exam: Present: normal bowel sounds, soft. Absent: distended, tenderness - Extremities Exam Extremities exam: Absent: joint swelling - Back Exam Back exam: Absent: CVA tenderness (L), CVA tenderness (R) - Neurological Exam Neurological exam: Present: alert. Absent: facial droop, speech deficit - Skin Skin exam: Present: dry. Absent: normal color (Bluish discoloration of his lips ) Internal Medicine: Result - Labs CBC & Chem 7: 01/06/17 12:05 01/06/17 05:47 Labs: Short CBC 01/06/17 01/06/17 Range/Units 05:47 12:05 WBC 6.6 (4.3-11.1) K/mcL Hgb 11.0 L D 11.6 L (12.9-16.9) g/dL Hct 34.4 L (37.5-50.1) % Plt Count 239 (140-400) K/mcL Neutrophils # 5.9 (1.6-8.9) K/mcL BMP 01/06/17 05:47 Sodium 136 Potassium 4.0 Chloride 91 L Carbon Dioxide 35 H BUN 27 H Creatinine 0.88 Glucose 132 H Calcium 9.1 - ABG Interpretation ABG results: ABG ABG pH 7.41 pH Units (7.32-7.45) 01/05/17 08:20 ABG pCO2 65 mmHg (35-45) H 01/05/17 08:20 ABG pO2 42 mmHg (85-104) L* 01/05/17 08:20 ABG O2 Saturation 78 % (95-98) L 01/05/17 08:20 Consult Discharge Plan - Plan Referrals: Radha Hicks, ANIYAH [Primary Care Provider] - 01/11/17 1:45 pm (web request sent on 01/05/17)
[2017-01-06] MEDS ORDERED: amLODIPine 5 MG TABLET PO SCH (15:30)
[2017-01-06] MEDS: MethylPREDNISolone 40 MG/ML VIAL IVP SCH (16:18)
[2017-01-06] MEDS: *HR* Morphine Sulfate SR (12 HR) 15 MG TABLET.ER PO SCH (16:18)
[2017-01-06] MEDS: Isosorbide MONOnitrate (24 HR) 30 MG TAB.ER.24H PO SCH (16:18)
[2017-01-06] MEDS: amLODIPine 5 MG TABLET PO SCH (16:18)
[2017-01-06] MEDS: Sennosides/Docusate Sodium TABLET PO SCH (20:48)
[2017-01-07] MEDS: Ipratropium/Albuterol Neb 3 ML IH SCH ×3 (05:28→11:28)
[2017-01-07] MEDS: *HR* Enoxaparin 40 MG/0.4 ML SYRINGE SQ SCH (05:43)
[2017-01-07] MEDS: *HR* Morphine Sulfate SR (12 HR) 15 MG TABLET.ER PO SCH (05:44)
[2017-01-07] MEDS: MethylPREDNISolone 40 MG/ML VIAL IVP SCH (05:44)
[2017-01-07 07:27] VITALS: BP 160/96
[2017-01-07] MEDS: Isosorbide MONOnitrate (24 HR) 30 MG TAB.ER.24H PO SCH (08:05)
[2017-01-07] MEDS: Sennosides/Docusate Sodium TABLET PO SCH (08:05)
[2017-01-07] MEDS: Furosemide 20 MG/2 ML VIAL IVP SCH (08:06)
[2017-01-07] MEDS: amLODIPine 5 MG TABLET PO SCH (08:06)
[2017-01-07] MEDS: Nicotine 21 MG PATCH.TD24 TD SCH (08:06)
--- NOTE | 2017-01-07 09:14 | Discharge Summary ---
Date of Encounter: 01/07/17 Time of Encounter: 08:45 - Discharge Diagnosis (1) Acute and chronic respiratory failure with hypoxia Priority: Primary Status: Acute (2) Advanced COPD Priority: Primary Status: Acute (3) Acute exacerbation of chronic obstructive airways disease Priority: Primary Status: Acute (4) Diastolic heart failure Priority: Primary Status: Acute Qualifiers: Heart failure chronicity: chronic Qualified Code(s): I50.32 - Chronic diastolic (congestive) heart failure (5) Hypertensive urgency Priority: Primary Status: Acute (6) Anemia Priority: Primary Status: Chronic Qualifiers: Anemia type: unspecified type Qualified Code(s): D64.9 - Anemia, unspecified (7) Severe protein-calorie malnutrition Priority: Secondary Status: Chronic (8) Tobacco abuse Priority: Secondary Status: Chronic (9) Counseling regarding advanced care planning and goals of care Priority: Primary Status: Acute - Discharge Medications Prescriptions: RX: Albuterol Neb [Proventil Neb] 2.5 mg IH [id number] PRN 30 Days PRN Reason: Shortness Of Breath/Wheezing RX: Ipratropium/Albuterol Neb [Duoneb] 3 ml IH Q4HR #30 inhsol RX: Morphine Oral CONC [Roxanol] 5 mg PO Q4HR #15 oral.syg RX: LORazepam Oral Conc [Ativan Oral Conc] 1 mg PO Q6HR PRN #15 mls PRN Reason: Anxiety /restlessness RX: Morphine Sulfate SR (12 HR) [MS Contin] 15 mg PO Q12HR #8 tablet.er RX: Amlodipine [Norvasc] 5 mg PO DAILY #30 tablet RX: Furosemide [Lasix] 20 mg PO BID #60 tablet RX: Isosorbide MONOnitrate (24 HR) [Imdur] 30 mg PO DAILY #30 tab.er.24h RX: PredniSONE 40 mg PO DAILY #4 tablet RX: Sennosides/Docusate Sodium [Senna Plus] 1 each PO BID #8 tablet Home Medications: RX: Chlordiazepoxide [Librium] 10 mg PO BID 06/16/15 [History] RX: Ascorbate Calcium [Vitamin C] 500 mg PO DAILY 12/06/16 [History] RX: Cranberry 500 mg PO DAILY 12/06/16 [History] RX: Multivitamin [Multi-Day Vitamins] 1 tab PO DAILY 12/06/16 [History] RX: Lactose-Reduced Food [Ensure Plus] 1 bottle PO TID #90 can 12/08/16 [Rx] RX: Cyanocobalamin (Vitamin B-12) [Vitamin B12] 1,000 mcg PO DAILY 12/26/16 [ History] RX: Famotidine [Heartburn Prevention] 20 mg PO DAILY 01/05/17 [History] RX: LORazepam Oral Conc [Ativan Oral Conc] 1 mg PO Q6HR PRN #15 mls 01/06/17 [Rx ] RX: Morphine Oral CONC [Roxanol] 5 mg PO Q4HR #15 oral.syg 01/06/17 [Rx] RX: Morphine Sulfate SR (12 HR) [MS Contin] 15 mg PO Q12HR #8 tablet.er [Rx] RX: PredniSONE 40 mg PO DAILY #4 tablet 01/06/17 [Rx] RX: Sennosides/Docusate Sodium [Senna Plus] 1 each PO BID #8 tablet 01/06/17 [Rx ] RX: Albuterol Neb [Proventil Neb] 2.5 mg IH [id number] PRN 30 Days 01/07/17 [Rx] RX: Amlodipine [Norvasc] 5 mg PO DAILY #30 tablet 01/07/17 [Rx] RX: Furosemide [Lasix] 20 mg PO BID #60 tablet 01/07/17 [Rx] RX: Ipratropium/Albuterol Neb [Duoneb] 3 ml IH Q4HR #30 inhsol 01/07/17 [Rx] RX: Isosorbide MONOnitrate (24 HR) [Imdur] 30 mg PO DAILY #30 tab.er.24h [Rx] Allergies/Adverse Reactions: Allergies No Known Allergies Allergy (Verified 12/26/16 16:34) Procedures/tests Complete & Pending: Procedures Performed prior 72 hours Category Date Time Status ECG 12 lead ECG [ECG] Routine Y 01/06/17 03:25 Completed EV echocardiogram Routine Y 01/05/17 02:58 Completed Date of admission: 01/05/17 02:46 Primary care physician: Radha Hicks CNP Consults: 01/05/17 06:43 Consult to Palliative Care [CONS] Routine Comment: Consulting Provider: Palliative Care [place] - Patient Status Disposition: Home Health Service Condition: Good Functional capacity at discharge: bed bound Overall status at discharge: patient is not back to baseline - Discharge Instructions Instructions: Chronic Obstructive Pulmonary Disease (DC), Chronic Hypertension (DC), Anemia (GEN) Follow Up With: Radha Hicks CNP [Primary Care Provider] - 01/11/17 1:45 pm (cancel all appts. patient is going home under hospice care) - Diet and Activity Activity: resume usual activities as tolerated, wear oxygen at all times Diet: regular diet (ensure plus tid, fluid restriction 2L/day) Interval History: patient is eating more of his breakfast tray this morning. He wore BIPAP overnight. FAmily at bedside. all questions answered. Hospital course: Mr. Becker is a 81 year old male with past medical history of advanced COPD, oxygen dependent at 4 L nasal cannula, diastolic heart failure, hypertension, and tobacco use. This is patient's fourth admission to our hospital secondary to acute respiratory failure from advanced COPD. patient still smokes cigarettes and is not willing to quit. Patient completed a full course of oral antibiotics before this admission, no need for more antibiotics at this time. Chest x-ray showed no acute cardiopulmonary abnormality, near complete resolution of previously present bibasilar pulmonary opacities, emphysema with chronic interstitial fibrotic changes. Patient required BiPAP on admission and tolerated it well for 12 hours and then switched to 5 L of oxygen via nasal cannula daytime and BIPAP at bedtime. Duonebs increased to q4hr and started on systemic glucocorticoids. Palliative service consulted and after discussing goals of care with family and patient, patient agreed with hospice at home. PLAN: hospice at home - Time Spent with Patient Total time spent providing and/or coordinating discharge services: - Constitutional Vitals: Temp Pulse Resp BP Pulse Ox 98 F 104 16 160/96 95 01/07/17 07:26 01/07/17 07:26 01/07/17 07:54 01/07/17 07:26 01/07/17 07:54 General appearance: Present: cachectic, cooperative, mild distress, A&O X 3, pleasant, answers questions appropriately - Eye Eye exam: Present: PERRL, sclera anicteric - ENT ENT exam: Present: mucous membranes dry - Neck Neck exam general surgery: Present: supple, trachea midline. Absent: lymphadenopathy - Respiratory Respiratory exam: Present: decreased breath sounds, wheezes - Cardiovascular Cardiovascular exam: Present: tachycardia - GI/Abdominal GI/Abdominal exam: Present: normal bowel sounds, soft. Absent: distended, tenderness - Extremities Exam Extremities exam: Absent: pedal edema - Back Exam Back exam: Absent: CVA tenderness (L), CVA tenderness (R) - Neurological Exam Neurological exam: Present: alert, oriented X3. Absent: facial droop, speech deficit - Skin Skin exam: Present: dry
--- NOTE | 2017-01-07 09:15 | Palliative Progress Note ---
Date of Encounter: 01/07/17 Time of Encounter: 09:13 - Assessment and plan (1) Dyspnea Current Visit: No Status: Acute Assessment and plan: Supplemental O2 and BiPAP as needed. MS Contin 15 mg twice a day started yesterday, patient tolerating well. Continue with current medications. May utilize Roxanol 5 mg sublingual as needed for breakthrough dyspnea. Hospice service to follow as an outpatient. Qualifiers: Dyspnea type: unspecified Qualified Code(s): R06.00 - Dyspnea, unspecified (2) Counseling regarding advanced care planning and goals of care Current Visit: Yes Status: Acute (3) Acute exacerbation of chronic obstructive airways disease Current Visit: Yes Status: Acute Assessment and plan: Mr. Becker is enrolling in hospice services upon discharge. CODE STATUS no DNR CC. Durable medical equipment being delivered to the home today. Hospice services to enroll prior to departure from [facility]. Prescriptions faxed to pharmacy and at bedside. (4) Severe protein-calorie malnutrition Current Visit: Yes Status: Chronic (5) Acute and chronic respiratory failure with hypoxia Current Visit: No Status: Acute - Time Spent With Patient Total time spent is greater than 50% in coordination of care (as documented) at patient's floor/unit and/or counseling patient: - Subjective Interval history: Mr. Becker is sitting up in bed eating his morning meal. He reports his breathing is at baseline. He is anxious to be discharged home today. Family at bedside. Mr. Becker denies pain. - Constitutional Vitals: Abnormal lab results RBC 3.60 M/mcL (4.19-5.50) L 01/06/17 05:47 Hgb 11.6 g/dL (12.9-16.9) L 01/06/17 12:05 Hct 34.4 % (37.5-50.1) L 01/06/17 05:47 Lymphocytes # 0.2 K/mcL (0.6-4.6) L 01/06/17 05:47 ABG pCO2 65 mmHg (35-45) H 01/05/17 08:20 ABG pO2 42 mmHg (85-104) L* 01/05/17 08:20 ABG HCO3 41.2 mEQ/L (21-27) H 01/05/17 08:20 ABG Total CO2 43.2 mEq/L (20-26) H 01/05/17 08:20 ABG O2 Saturation 78 % (95-98) L 01/05/17 08:20 ABG Base Excess 14.1 mEq/L (-2.0 to 3.0) H 01/05/17 08:20 Chloride 91 mEq/L (98-109) L 01/06/17 05:47 Carbon Dioxide 35 mEq/L (19-29) H 01/06/17 05:47 BUN 27 mg/dL (8-26) H 01/06/17 05:47 BUN/Creatinine Ratio 31 (6-26) H 01/06/17 05:47 Glucose 132 mg/dL (70-99) H 01/06/17 05:47 B-Natriuretic Peptide 107 pg/mL (0-100) H 01/04/17 23:30 General appearance: Present: cooperative, no acute distress, thin - ENT ENT exam: Present: mucous membranes moist - Respiratory Respiratory exam: Absent: respiratory distress - GI/Abdominal GI/Abdominal exam: Present: normal bowel sounds. Absent: tenderness - Extremities Exam Extremities exam: Present: normal inspection - Neurological Exam Neurological exam: Present: alert, oriented X3, no focal deficits - Psychiatric Psychiatric exam: Present: anxious (to be discharged) - Skin Skin exam: Present: dry, warm Palliative Quality Palliative Quality: Screen for Code Status: Yes, Screen for Goals of Care: Yes, Screen for Pain: Yes, If Pain Regimen Started, Initiate Bowel Regimen: NA, Screen for Nausea/Vomitting: Yes Code Status: 01/05/17 02:56 Resuscitation Status: Active [RES] Routine Comment: Resuscitation Status: Full Code 01/06/17 10:41 DNR [Resuscitation Status: Active] [RES] Routine Comment: Resuscitation Status: [id number] 01/06/17 15:41 DNR [Resuscitation Status: Active] [RES] Routine Comment: Resuscitation Status: DNR-Comfort Care - Labs CBC & Chem 7: 01/06/17 12:05 01/06/17 05:47 Labs: Laboratory Results - last 24 hr 01/06/17 12:05 Hgb 11.6 L - ABG Interpretation ABG results: ABG ABG pH 7.41 pH Units (7.32-7.45) 01/05/17 08:20 ABG pCO2 65 mmHg (35-45) H 01/05/17 08:20 ABG pO2 42 mmHg (85-104) L* 01/05/17 08:20 ABG O2 Saturation 78 % (95-98) L 01/05/17 08:20 Consult Discharge Plan - Plan Instructions: Chronic Obstructive Pulmonary Disease (DC), Chronic Hypertension (DC), Anemia (GEN) Referrals: Radha Hicks CNP [Primary Care Provider] - 01/11/17 1:45 pm (cancel all appts. patient is going home under hospice care) Prescriptions: Albuterol Neb [Proventil Neb] 2.5 mg IH [id number] PRN 30 Days PRN Reason: Shortness Of Breath/Wheezing Ipratropium/Albuterol Neb [Duoneb] 3 ml IH Q4HR #30 inhsol Morphine Oral CONC [Roxanol] 5 mg PO Q4HR #15 oral.syg LORazepam Oral Conc [Ativan Oral Conc] 1 mg PO Q6HR PRN #15 mls PRN Reason: Anxiety /restlessness Morphine Sulfate SR (12 HR) [MS Contin] 15 mg PO Q12HR #8 tablet.er Amlodipine [Norvasc] 5 mg PO DAILY #30 tablet Furosemide [Lasix] 20 mg PO BID #60 tablet Isosorbide MONOnitrate (24 HR) [Imdur] 30 mg PO DAILY #30 tab.er.24h PredniSONE 40 mg PO DAILY #4 tablet Sennosides/Docusate Sodium [Senna Plus] 1 each PO BID #8 tablet
--- NOTE | 2017-01-07 09:23 | Physician Discharge Referral ---
Home Health/Hosp Referral Info Transfer to: Home Health Attending Provider: yvette Provider in Charge Post Discharge: PCP - Diagnosis (1) Acute and chronic respiratory failure with hypoxia Status: Acute (2) Advanced COPD Status: Acute (3) Acute exacerbation of chronic obstructive airways disease Status: Acute (4) Diastolic heart failure Status: Acute (5) Hypertensive urgency Status: Acute (6) Anemia Status: Chronic (7) Severe protein-calorie malnutrition Status: Chronic (8) Tobacco abuse Status: Chronic (9) Counseling regarding advanced care planning and goals of care Status: Acute - Respiratory Orders Oxygen / L per min (4L daytime, BIPAP as needed at nighttime) Smoking Cessation: Smoking cessation has been advised. For more information, call the [place] [employer] Tobacco Quit Line at 2-387-KJGI-NOW. - Diet/Nutrition Diet/Nutrition Orders: Regular (ensure tid, fluid retriction 2L/day) - Activity Activity Orders: Bedrest - Services Needed Following services are medically necessary services: Nursing, Home Health Aide - Transfer Medications Prescriptions: Albuterol Neb [Proventil Neb] 2.5 mg IH [id number] PRN 30 Days PRN Reason: Shortness Of Breath/Wheezing Ipratropium/Albuterol Neb [Duoneb] 3 ml IH Q4HR #30 inhsol Morphine Oral CONC [Roxanol] 5 mg PO Q4HR #15 oral.syg LORazepam Oral Conc [Ativan Oral Conc] 1 mg PO Q6HR PRN #15 mls PRN Reason: Anxiety /restlessness Morphine Sulfate SR (12 HR) [MS Contin] 15 mg PO Q12HR #8 tablet.er Amlodipine [Norvasc] 5 mg PO DAILY #30 tablet Furosemide [Lasix] 20 mg PO BID #60 tablet Isosorbide MONOnitrate (24 HR) [Imdur] 30 mg PO DAILY #30 tab.er.24h PredniSONE 40 mg PO DAILY #4 tablet Sennosides/Docusate Sodium [Senna Plus] 1 each PO BID #8 tablet Home Medications: Chlordiazepoxide [Librium] 10 mg PO BID 06/16/15 [History] Ascorbate Calcium [Vitamin C] 500 mg PO DAILY 12/06/16 [History] Cranberry 500 mg PO DAILY 12/06/16 [History] Multivitamin [Multi-Day Vitamins] 1 tab PO DAILY 12/06/16 [History] Lactose-Reduced Food [Ensure Plus] 1 bottle PO TID #90 can 12/08/16 [Rx] Cyanocobalamin (Vitamin B-12) [Vitamin B12] 1,000 mcg PO DAILY 12/26/16 [History ] Famotidine [Heartburn Prevention] 20 mg PO DAILY 01/05/17 [History] LORazepam Oral Conc [Ativan Oral Conc] 1 mg PO Q6HR PRN #15 mls 01/06/17 [Rx] Morphine Oral CONC [Roxanol] 5 mg PO Q4HR #15 oral.syg 01/06/17 [Rx] Morphine Sulfate SR (12 HR) [MS Contin] 15 mg PO Q12HR #8 tablet.er 01/06/17 [Rx ] PredniSONE 40 mg PO DAILY #4 tablet 01/06/17 [Rx] Sennosides/Docusate Sodium [Senna Plus] 1 each PO BID #8 tablet 01/06/17 [Rx] Albuterol Neb [Proventil Neb] 2.5 mg IH [id number] PRN 30 Days 01/07/17 [Rx] Amlodipine [Norvasc] 5 mg PO DAILY #30 tablet 01/07/17 [Rx] Furosemide [Lasix] 20 mg PO BID #60 tablet 01/07/17 [Rx] Ipratropium/Albuterol Neb [Duoneb] 3 ml IH Q4HR #30 inhsol 01/07/17 [Rx] Isosorbide MONOnitrate (24 HR) [Imdur] 30 mg PO DAILY #30 tab.er.24h 01/07/17 [ Rx] Allergies/Adverse Reactions: Allergies No Known Allergies Allergy (Verified 12/26/16 16:34) Certification: Further, I certify that my clinical findings support that this patient is homebound (i.e. absences from home require considerable and taxing effort and are for medical reasons or congregational services or infrequently or short duration when for other reasons) because: Homebound Reason: Patient requires assistance of a person or device to safely leave home, Leaving home requires considerable and taxing effort due to condition, Severity of cardiac or pulmonary status limits activity tolerance Attestation: My signature below is to certify that this patient is under my care and that I, or nurse practitioner, or a physician's perinatal breastfeeding assistant working with me, has a face-to -face encounter with this patient.
--- NOTE | 2017-01-08 06:54 | Electrocardiograph Report ---
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
[2017-01-08] MEDS ORDERED: predniSONE 20 MG TABLET PO SCH (09:00)
--- NOTE | 2017-01-11 14:20 | Event Note ---
Date of Encounter: 01/11/17 Time of Encounter: 14:18 Hospice medical technologist certification of terminal illness: Hospice benefit. Start: 01/07/2017 Hospice benefit. In: +90 days Palliative performance scale: 30-40% History: The patient has a history of severe COPD oxygen saturations in the low 80s despite oxygen therapy. Patient also has multiple recent hospitalizations for COPD. Patient wishes to forego any further aggressive therapy and be treated with comfort measures only. Since the patient has severe COPD with low oxygen saturations even with oxygen therapy, coupled with his desire to no longer be aggressively treated I believe that These findings support a life expectancy of 6 months or less. I attest that I have compose the above narrative based on my review of the patient's medical records, and or on my examination of the patient. Pablito Espinal M.D. Associate medical technologist. [facility]
== END 2017-01-07 12:22 | disposition home health service (06) | DRG 190 ==
LOC: 2ANU 23:03 → EMEROO 23:03 → 2ANU 01-05 01:41 → SUATTDRO 01-05 02:46
PROVIDERS: ADMIT Internal Medicine; ATTEND Internal Medicine